=== PATIENT | female | born 1960 | race Caucasian/White ===

== ENCOUNTER 2021-06-07 21:21 | Inpatient (IN) | payer OTHER, SELFPAY ==
[2021-06-07 21:21] VITALS: BP 140/78; PULSE 117; RESP 28; TEMP 36.6; O2SAT 78; BMI 26.3
--- NOTE | 2021-06-07 21:53 | CT_ITS ---
STUDY: CTA CHEST REASON FOR EXAM: Female, 60 years old. Hypoxia. Shortness of breath. COVID positive for 6 days. Nausea, vomiting and diarrhea. RADIATION DOSAGE (If Supplied By Facility): CTDIvol = ( 11.70 ) mGy, DLP = ( 441.01 ) mGycm TECHNIQUE: The examination was performed with the intravenous administration of IV 100mL Isovue-370. Post-processing of the angiographic images was performed, with multiplanar reformation and 3D reconstruction. Individualized dose optimization techniques were used for this CT. COMPARISON: None. FINDINGS: Normal enhancement of the main pulmonary artery and right and left pulmonary arteries. Normal enhancement of the bilateral peripheral pulmonary arteries. There is no demonstrated pulmonary embolism. Normal thoracic aorta and visualized great vessels. There is no demonstrated aortic dissection. Normal heart and pericardium. Minimal coronary artery calcifications. Normal mediastinum. Normal hilar regions. Normal visualized trachea and bronchi. The lungs are well expanded. Patchy peripheral groundglass infiltrates throughout both lungs consistent with COVID pneumonia. Normal pleura. Normal chest wall structures. There are degenerative changes of thoracic spine. Borderline splenomegaly. Upper abdomen is otherwise grossly normal CT/CTA Chest W/WO Contrast IMPRESSION: 1. No evidence of pulmonary embolus. 2. No aortic dissection or aneurysm. 3. Pulmonary findings consistent with COVID pneumonia. Electronically Signed: Titus Granados DO at 23:28 EST Tel [phone], Service support ,
--- NOTE | 2021-06-07 21:53 | EKG12_ITS ---
Test Reason : DYSRHYTHMIA Blood Pressure : / mmHG Vent. Rate : 099 BPM Atrial Rate : 099 BPM P-R Int : 174 ms QRS Dur : 086 ms QT Int : 358 ms P-R-T Axes : 041 019 -14 degrees QTc Int : 459 ms Normal sinus rhythm Nonspecific ST and T wave abnormality Abnormal ECG Confirmed by KEVIN CLIFTON, ANNA ([id number]), editor & co founder VINAY KINSEY ([id number]) on 06/08/2021 11:48:47 AM Referred By: BELLE Confirmed By:ANNA BROWN MD
--- NOTE | 2021-06-07 21:57 | ED.RN ---
NO OLD EKGS ON FILE
[2021-06-07 22:03] LABS: Absolute Neutrophil Count 3.2 X10^3/uL (2.0-7.7); Basophil# 0.01 X10^3/uL; Basophil% 0.2 % (0-1); Eosinophil# 0.04 X10^3/uL; Eosinophils% 0.9 % (0-5); Hematocrit 38.9 % (37-47); Hemoglobin 12.8 g/dL (12.0-15.0); Lymphocyte % 16.4 % (19-41); Mean Corp Hgb Conc 32.9 g/dL (32-36); Mean Corpuscular Hgb 26.6 pg (27.0-32.0); Mean Corpuscular Volume 80.7 fL (81-99); Mean Platelet Vol. 8.3 fl (6.2-12.0); Monocyte# 0.22 X10^3/uL; Monocyte% 5.2 % (0-10); NRBC Flagged by Analyzer 0 % (0-5); Neutrophil # 3.22 X10^3/uL (2.7-7.7); Neutrophil % 75.7 % (47-70); Platelet Count 279 K/mm3 (150-450); RBC Distribution Width CV 13.2 % (11.6-14.6); RBC Distribution Width SD 38.5 fl (35.1-43.9); Red Blood Count 4.82 M/mm3 (4.2-5.4); White Blood Count 4.3 K/mm3 (4.4-11.0)
[2021-06-07 22:06] VITALS: O2SAT 96
[2021-06-07 22:08] LABS: International Normalized Ratio 1.1; Prothrombin Time (Protime)PT. 13.4 SECONDS (11.7-14.9)
[2021-06-07 22:09] LABS: Partial Thromboplast Time 33.1 Seconds (24.1-36.2)
[2021-06-07 22:10] VITALS: PULSE 97; RESP 18; O2SAT 96
[2021-06-07] MEDS: 0.9% Normal Saline 1,000 ML 999 ML IV (22:15)
[2021-06-07] MEDS: dexAMETHasone 10 MG/ML Vial IV (22:15)
[2021-06-07 22:19] LABS: Anion Gap 8 (5-15); BUN 11 mg/dL (7-18); BUN/Creat Ratio 13.9 RATIO (10-20); Chloride 105 mmol/L (98-107); Creatinine, Serum 0.79 mg/dL (0.55-1.02); EST Glomerular Filtration Rate 78 mL/min (>60); Est Glom Filt Rate - Afr Amer 94 mL/min (>60); Glucose 117 mg/dL (74-106); Potassium 3.2 mmol/L (3.5-5.1); Sodium Level 139 mmol/L (136-145); Troponin-I HS 8 pg/mL (3.0-54.0)
--- NOTE | 2021-06-07 22:24 | EX.ED.DYSGE1 ---
HPI History of Present Illness Chief Complaint: Shortness of Breath Narrative Narrative: Patient is a 60-year-old female who states that she began feeling sick approximately 8 days ago. She states she went to her family doctor on Friday and was diagnosed with Covid. She states that as time is past she has been feeling more more short of breath. She states it is now to the point where she is short of breath just at rest. She denies any history of smoking or lung disorder or need for supplemental oxygen. However with her worsening symptoms as well as recent Covid diagnosis she was concerned and presents to the hospital for evaluation [facility] Medical History Mitral valve prolapse Allergy/AdvReac Type Severity Reaction Status Date / Time No Known Allergies Allergy Verified 06/07/21 22:22 Social History Smoking Status: Never smoker ROS ROS ED Constitutional Constitutional ED: Denies chills or fever(s) ENT ENT ED: Reports rhinorrhea and sore throat Cardiovascular Cardiovascular: Denies chest pain Respiratory/Chest Respiratory/Chest: Reports cough, dyspnea and sputum Gastrointestinal Gastrointestinal: Denies abdominal pain, diarrhea, nausea or vomiting Genitourinary Genitourinary ED: Denies dysuria Musculoskeletal Musculoskeletal: Reports myalgias Integumentary Denies rash Neurologic Neurologic: Denies headache(s) Hematologic/Lymphatic Hematologic/Lymphatic: Denies easy bleeding or easy bruising EXAM Physical Exam Const Vital Signs: 06/07/21 21:21 06/07/21 22:06 06/07/21 22:10 Temperature 97.8 F Temperature Source Temporal Pulse Rate 117 H 97 Respiratory Rate 28 H 18 Respiratory Effort Short of Breath Respiratory Pattern Tachypnea Blood Pressure 140/78 H Blood Pressure Mean 98 Pulse Ox 78 96 Oxygen Delivery Method Room Air Nasal Cannula Nasal Cannula Oxygen Flow Rate (L/min) 6 6 Positive well nourished and well developed General Appearance ED: well developed HEENT Reports moist mucous membranes HEENT Narrative: Cobblestoning the posterior pharynx consistent with sinus drainage but no airway edema or compromise Eyes PERRL and EOMs intact bilaterally Neck supple and no JVD Neck Narrative: Positive anterior cervical lymphadenopathy Resp Resp Narrative: Patient is in respiratory distress with tachypnea and accessory muscle use. Breath sounds are diminished throughout with faint expiratory wheezes as well as rhonchi in bilateral bases. Cardio regular rhythm Rate: tachycardic and other Other Details: Tachycardic rate with regular rhythm. Radial pulses are +2-4 bilaterally are equal and symmetric GI normal to inspection, nondistended, normoactive bowel sounds, non-tender, non-distended and no masses GI Narrative: No voluntary guarding or rigidity no pulsatile mass Auscultation: normoactive bowel sounds Palpation: soft Extremity normal to inspection Extremity Narrative: No asymmetric edema no pitting edema negative Homans' sign bilaterally Neuro oriented x3 and CN's II-XII intact bilaterally Sensorium / Orientation: alert Motor Exam: strength 5/5 throughout Psych mental status grossly normal Skin no rashes or lesions noted MDM MDM MDM Narrative Medical decision making narrative: Patient into the ER and respiratory distress with tachypnea tachycardia and hypoxia with room air pulse ox at 78%. She reported a recent Covid diagnosis roughly 7 to 8 days ago. Secondary to this she was given Decadron and breathing treatments and sent for CTA with concern for possible PE. CTA revealed no PE but does show diffuse groundglass opacities consistent with Covid pneumonitis. At this time I have concerned that she is going to have worsening inflammation over the next few days and therefore will get admitted to the hospital at this time for continued oxygen therapy and possibly remdesivir treatment. Lab Data Attestation: I reviewed the patient's lab results. Labs: Laboratory Results - last 24 hr 06/07/21 06/07/21 06/07/21 21:49 21:49 21:49 WBC 4.3 L RBC 4.82 Hgb 12.8 Hct 38.9 MCV 80.7 L MCH 26.6 L MCHC 32.9 RDW Std Deviation 38.5 RDW Coeff of Xochitl 13.2 Plt Count 279 MPV 8.3 Immature Gran % (Auto) 1.600 H Neut % (Auto) 75.7 H Lymph % (Auto) 16.4 L [place] % (Auto) 5.2 Eos % (Auto) 0.9 Baso % (Auto) 0.2 Absolute Neuts (auto) 3.2 Absolute Lymphs (auto) 0.70 L Nucleated RBC % 0 PT 13.4 INR 1.1 APTT 33.1 Sodium 139 Potassium 3.2 L Chloride 105 Carbon Dioxide 26.0 Anion Gap 8 BUN 11 Creatinine 0.79 Estim Creat Clear Calc 71.80 Est GFR (MDRD) Af Amer 94 Est GFR (MDRD) Non-Af 78 BUN/Creatinine Ratio 13.9 Glucose 117 H Calcium 9.0 Magnesium 2.0 Troponin I High Sens 8 Discharge Plan Triage Chief Complaint: Shortness of Breath ED Provider: Felix Quinn Dx/Rx/DC Orders Clinical Impression: Acute respiratory failure with hypoxia, COVID-19 Primary Care Provider: Oscar Ayala Referrals: Oscar Ayala MD [Primary Care Provider] - Disposition Disposition: Acute Care Hospital [facility]
--- NOTE | 2021-06-07 23:03 | HP.PCM.HOS_ITS ---
HPI - General General Date of Admission: 06/07/21 Date of Service: 06/07/21 Chief Complaint: Covid-like symptoms HPI Narrative SOUTH [place], is a 60 F with a significant history of congenital solitary kidney; and mitral valve prolapse who presents to the emergency department with Covid-like symptoms that started 8 days before presentation. She describes a Covid-like symptoms as difficulty breathing; anorexia; dysgeusia; anosmia; diar farhan; fatigue; headaches; arthralgia; and muscle aches. She report that her muscle ache has actually improved. She reports dry cough. She called her Nurse Practitioner and she will instructed to have a Covid test. She had the Covid test sick before presentation at an urgent care. The next day she was notified of the Covid test was positive. Her nurse petitioner started her on prednisone taper. Her symptoms progressively got worse so she came to the emergency department . On initial presentation at the emergency department her oxygen saturation was 78% on room air. Also she reported that at the urgent care she was started on eardrops and was given antibiotics for ear infection. She has completed a course of the antibiotics. [facility] Medical History Mitral valve prolapse Home Medications ergocalciferol (vitamin D2) 1,250 mcg PO QWEEK 06/08/21 [History Last Taken 06/05/21] sertraline 100 mg PO QHS 06/08/21 [History Last Taken 06/06/21] trazodone 50 mg PO QHS 06/08/21 [History Last Taken 06/06/21] Allergy/AdvReac Type Severity Reaction Status Date / Time No Known Allergies Allergy Verified 06/08/21 00:24 Family History Other Diabetes Heart disease Multiple sclerosis Surgical History no surgical history no surgical history Social History Smoking Status: Never smoker ROS ROS Narrative Constitutional: Denies fever. Reports chills, fatigue, anorexia . Eyes: Denies blurry vision, change in eye color, change in vision, discharge from eye(s), double vision, erythema, eye pain, loss of vision or other HEENT: Reports headache. Denies abnormal hearing, dysphagia, ear pain, epistaxis, hearing loss, nasal congestion, nasal discharge, post nasal drip, sinus pressure, sore throat or other Cardiovascular: Denies chest pain or palpitations. Respiratory/Chest: Reports cough. Denies phlegm production. Gastrointestinal: Denies nausea vomiting and diarrhea. Genitourinary: Denies burning urination, difficulty urinating, dysuria, hematuria, nocturia, urinary frequency, urinary hesitancy, urinary incontinence, urinary urgency or other Musculoskeletal: Reports arthralgia and myalgia. Neurologic: Denies abnormal gait, abnormal speech, confusion, disequilibrium, dizziness, focal weakness, numbness, paresthesias, seizure-like activity, seizures, syncope, tingling, tremor(s) or other Psychiatric: Denies anxiety, depression, homicidal ideation, suicidal ideation or other Endocrinology: Denies change in body appearance, cold intolerance, excessive sweating, heat intolerance, polydipsia, polyuria or other Hematologic/Lymphatic: Denies anemia, easy bleeding, easy bruising, lymphadenopathy or other Integumentary: Denies rashes Allergic/Immunologic: Denies rhinitis, hives, eczema, asthma or other Vital Signs Vital Signs Vital Signs: 06/07/21 21:21 06/07/21 22:06 06/07/21 22:10 Temperature 97.8 F Temperature Source Temporal Pulse Rate 117 H 97 Respiratory Rate 28 H 18 Respiratory Effort Short of Breath Respiratory Pattern Tachypnea Blood Pressure 140/78 H Blood Pressure Mean 98 Pulse Ox 78 96 Oxygen Delivery Method Room Air Nasal Cannula Nasal Cannula Oxygen Flow Rate (L/min) 6 6 Weight Weight: 76.204 kg Body Mass Index (BMI) 26.3 Physical Exam Narrative Physical exam: General: Well-nourished, well-developed. Head: Normocephalic, atraumatic, no tenderness Eyes: PERRLA, EOMI ENT, no trauma, moist mucous membranes, no rhinorrhea Neck: Nontender, full range of motion, no spinal tenderness, deformities, step- off CVS: Regular rate and rhythm. S1-S2 present. No murmur, gallop or rub. Respiratory : Tachypnea; use of accessory muscles of respiration; Rales. Abdomen: Soft, nontender, nondistended, normal bowel sounds, no masses : Deferred Back: Nontender, no CVA tenderness, no midline spinal tenderness, deformities, step-offs Extremities: Nontender full range of motion, no trauma Skin: Normal color, no trauma, abrasions Neuro: Alert, oriented, cranial nerves II through XII grossly intact. Psychiatry: Normal mood. Normal affect. Not depressed. Not anxious. Results Lab / Micro Data Result Diagrams: 06/07/21 21:49 06/07/21 21:49 Labs: Laboratory Results - last 24 hr 06/07/21 21:49: WBC 4.3 L, RBC 4.82, Hgb 12.8, Hct 38.9, MCV 80.7 L, MCH 26.6 L, MCHC 32.9, RDW Std Deviation 38.5, RDW Coeff of Xochitl 13.2, Plt Count 279, MPV 8.3, Immature Gran % (Auto) 1.600 H, Neut % (Auto) 75.7 H, Lymph % (Auto) 16.4 L , [place] % (Auto) 5.2, Eos % (Auto) 0.9, Baso % (Auto) 0.2, Absolute Neuts (auto) 3.2, Absolute Lymphs (auto) 0.70 L, Nucleated RBC % 0 06/07/21 21:49: PT 13.4, INR 1.1, APTT 33.1 06/07/21 21:49: Sodium 139, Potassium 3.2 L, Chloride 105, Carbon Dioxide 26.0, Anion Gap 8, BUN 11, Creatinine 0.79, Estim Creat Clear Calc 71.80, Est GFR (MDRD) Af Amer 94, Est GFR (MDRD) Non-Af 78, BUN/Creatinine Ratio 13.9, Glucose 117 H, Calcium 9.0, Magnesium 2.0, Troponin I High Sens 8 Micro: Microbiology 06/07/21 22:14 Nasal Secretion SARS-CoV-2 Antigen (Rapid) - Final SARS-CoV-2 (COVID 19) Assessment & Plan Assessment/Plan (1) Acute respiratory failure with hypoxia: (2) Pneumonia due to COVID-19 virus: PLAN: Acute hypoxemic respiratory failure secondary to SARS- COV 2 Oxygen saturation of 78% on presentation; with tachypnea and use of accessory muscles of respiration. Placed a nasal cannula oxygen at emergency department and continued. Chest CTA was independently reviewed and agree with radiologist impression of multifocal pneumonia. Covid test outpatient and at the emergency department was positive. Given Decadron at the emergency department. Decadron continued. Creatinine clearance is more than 30. Liver biochemistry is normal. Will start patient on remdesivir. Tylenol for fever Mucinex ordered Incentive spirometer and to physiotherapy ordered. Hypokalemia Potassium of 3.2 at the emergent department. Replaced at the emergency department. Trend BMP. DVT prophylaxis: Subcutaneous Lovenox ordered. Charges/Coding Visit Charges Inpatient E&M: 17290 Init Hosp L3
[2021-06-07 23:12] LABS: AST(SGOT) 48 U/L (15-37); Alanine Aminotransfer ALT/SGPT 36 U/L (13-56); Albumin, Serum 2.8 g/dL (3.2-5.0); Alkaline Phosphatase 82 U/L (45-117); Bilirubin, Direct 0.16 mg/dL (0.00-0.30); Globulin 4.4 g/dL (2.2-4.2); Lipase 111 U/L (73-393); Protein, Total 7.2 g/dL (6.4-8.2)
[2021-06-07 23:28] VITALS: BP 137/85; PULSE 97; RESP 19; TEMP 37.3; O2SAT 95
[2021-06-07] MEDS: Potassium Chloride Oral Tablet 20 MEQ 40 MEQ PO (23:30)
[2021-06-08] VITALS (14 sets, daily range): BP systolic 117–138; BP diastolic 64–89; PULSE 63–96; RESP 15–20; TEMP 36–37.8; O2SAT 80–99; BMI 26.6
--- NOTE | 2021-06-08 00:24 | PCS.PANDOC ---
PANDEMIC DOCUMENTATION INITIATED: Date: 02/26/2021 Time: 190
[2021-06-08] MEDS: guaiFENesin 1,200 MG Tablet 1200 MG PO ×3 (00:41→20:23)
[2021-06-08] MEDS: 0.9% Saline Lock 10 ML Syringe IV ×3 (00:41→20:23)
[2021-06-08] MEDS: Acetaminophen 325 MG Tablet 650 MG PO ×3 (01:19→20:29)
[2021-06-08] MEDS: traZODone 50 MG Tablet PO ×2 (02:18→20:23)
[2021-06-08] MEDS: Sertraline 100 MG Tablet PO ×2 (02:18→20:23)
[2021-06-08 07:24] LABS: Absolute Lymphocyte Count 0.54 X10^3/uL (0.83-4.51); Absolute Neutrophil Count 2.2 X10^3/uL (2.0-7.7); Hematocrit 39.4 % (37-47); Lymphocyte # 0.54 X10^3/ul (0.83-4.51); Mean Corpuscular Hgb 26.7 pg (27.0-32.0); Mean Corpuscular Volume 81.1 fL (81-99); Mean Platelet Vol. 8.4 fl (6.2-12.0); Monocyte# 0.09 X10^3/uL; Monocyte% 3.2 % (0-10); NRBC Flagged by Analyzer 0 % (0-5); Neutrophil # 2.15 X10^3/uL (2.7-7.7); Neutrophil % 75.7 % (47-70); POSITIVE DIFFERENTIAL YES; Platelet Count 315 K/mm3 (150-450); RBC Distribution Width CV 13.2 % (11.6-14.6); RBC Distribution Width SD 39.1 fl (35.1-43.9); Red Blood Count 4.86 M/mm3 (4.2-5.4); White Blood Count 2.8 K/mm3 (4.4-11.0)
[2021-06-08 07:27] LABS: Differential Indicated SCAN CRITERIA MET
[2021-06-08 07:43] LABS: ALB/GLOB Ratio 0.6 RATIO (0.9-2.4); AST(SGOT) 42 U/L (15-37); Alanine Aminotransfer ALT/SGPT 33 U/L (13-56); Albumin, Serum 2.9 g/dL (3.2-5.0); Alkaline Phosphatase 79 U/L (45-117); Anion Gap 9 (5-15); BUN 9 mg/dL (7-18); BUN/Creat Ratio 10.4 RATIO (10-20); Chloride 108 mmol/L (98-107); Creatinine, Serum 0.86 mg/dL (0.55-1.02); EST Glomerular Filtration Rate 71 mL/min (>60); Est Glom Filt Rate - Afr Amer 85 mL/min (>60); Estimated Creatinine Clearance 65.96 ml/min; Globulin 4.8 g/dL (2.2-4.2); Glucose 143 mg/dL (74-106); Potassium 4.1 mmol/L (3.5-5.1); Protein, Total 7.7 g/dL (6.4-8.2); Sodium Level 141 mmol/L (136-145)
[2021-06-08] MEDS: dexAMETHasone 2 MG TABLET 6 MG PO (09:25)
[2021-06-08] MEDS: Enoxaparin 30 MG/0.3 ML Syringe SC ×2 (09:26→20:22)
--- NOTE | 2021-06-08 10:52 | PCM.PN.HOSP ---
Subjective Subjective Feels slightly improved from admission, oxygen requirements are around 4 L nasal cannula Objective Data Objective Data Vital Signs: Vital Signs Temp Pulse Resp BP Pulse Ox 96.8 F L 84 15 127/64 H 80 06/08/21 09:23 06/08/21 09:23 06/08/21 09:23 06/08/21 09:23 06/08/21 09:42 Oxygen Flow Rate (L/min) [ 4 AMBULATING with Oxygen #1] Oxygen Flow Rate (L/min) 4 Oxygen Delivery Method Nasal Cannula Weight: 169 lb 15.622 oz Body Mass Index (BMI) 26.6 Intake & Output: Intake and Output for Last 24 Hours 06/07/21 06/08/21 06/09/21 03:59 03:59 03:59 Intake Total 1250 / 1250 Balance 1250 / 1250 Lab / Micro Data Result Diagrams: 06/08/21 06:55 06/08/21 06:55 Labs: Laboratory Results - last 24 hr 06/07/21 21:49: WBC 4.3 L, RBC 4.82, Hgb 12.8, Hct 38.9, MCV 80.7 L, MCH 26.6 L, MCHC 32.9, RDW Std Deviation 38.5, RDW Coeff of Xochitl 13.2, Plt Count 279, MPV 8.3, Immature Gran % (Auto) 1.600 H, Neut % (Auto) 75.7 H, Lymph % (Auto) 16.4 L, [place] % (Auto) 5.2, Eos % (Auto) 0.9, Baso % (Auto) 0.2, Absolute Neuts (auto) 3.2, Absolute Lymphs (auto) 0.70 L, Nucleated RBC % 0 06/07/21 21:49: PT 13.4, INR 1.1, APTT 33.1 06/07/21 21:49: Sodium 139, Potassium 3.2 L, Chloride 105, Carbon Dioxide 26.0, Anion Gap 8, BUN 11, Creatinine 0.79, Estim Creat Clear Calc 71.80, Est GFR (MDRD) Af Amer 94, Est GFR (MDRD) Non-Af 78, BUN/Creatinine Ratio 13.9, Glucose 117 H, Calcium 9.0, Magnesium 2.0, Troponin I High Sens 8 06/07/21 21:49: Total Bilirubin 0.40, Direct Bilirubin 0.16, AST 48 H, ALT 36, Alkaline Phosphatase 82, Total Protein 7.2, Albumin 2.8 L, Globulin 4.4 H, Lipase 111 06/08/21 06:55: WBC 2.8 L, RBC 4.86, Hgb 13.0, Hct 39.4, MCV 81.1, MCH 26.7 L, MCHC 33.0, RDW Std Deviation 39.1, RDW Coeff of Xochitl 13.2, Plt Count 315, MPV 8.4, Immature Gran % (Auto) 2.100 H, Neut % (Auto) 75.7 H, Lymph % (Auto) 19.0, [place] % (Auto) 3.2, Eos % (Auto) 0.0, Baso % (Auto) 0.0, Absolute Neuts (auto) 2.2, Absolute Lymphs (auto) 0.54 L, Nucleated RBC % 0, Differential Comment COMMENT, Diff Path Review November06/08/21 06:55: Sodium 141, Potassium 4.1, Chloride 108 H, Carbon Dioxide 24.0, Anion Gap 9, BUN 9, Creatinine 0.86, Estim Creat Clear Calc 65.96, Est GFR (MDRD) Af Amer 85, Est GFR (MDRD) Non-Af 71, BUN/Creatinine Ratio 10.4, Glucose 143 H, Calcium 9.0, Total Bilirubin 0.30, AST 42 H, ALT 33, Alkaline Phosphatase 79, Total Protein 7.7, Albumin 2.9 L, Globulin 4.8 H, Albumin/Globulin Ratio 0.6 L Micro: Microbiology 06/07/21 22:14 Nasal Secretion SARS-CoV-2 Antigen (Rapid) - Final SARS-CoV-2 (COVID 19) Radiography Diagnostic Testing: Radiology Impression Chest CTA 06/07/21 21:53 IMPRESSION: 1. No evidence of pulmonary embolus. 2. No aortic dissection or aneurysm. 3. Pulmonary findings consistent with COVID pneumonia. Electronically Signed: Titus Granados DO at 23:28 EST Tel [phone], Service support , Physical Exam Const alert, oriented x3 and no apparent distress General Appearance: cooperative HEENT normocephalic and moist oral mucous membranes Eyes PERRL, EOMs intact bilaterally and conjunctivae normal Neck supple and no JVD Resp normal respiratory effort, no retractions and no use of accessory muscles Auscultation: crackles; Negative for rales, rhonchi or wheezes Cardio regular rate, regular rhythm, S1 normal heart sound, S2 normal heart sound and no murmurs GI soft to palpation, non-tender and non-distended; Negative for hepatosplenomegaly Extremity no clubbing, cyanosis or edema Skin no rashes or lesions noted Neuro no focal motor deficits and no sensory deficits noted Psych affect normal Appearance: appropriate Assessment & Plan Assessment/Plan (1) Acute respiratory failure with hypoxia: (2) Pneumonia due to COVID-19 virus: PLAN: 1. Acute hypoxic respiratory failure secondary to COVID-19 pneumonia ?Continue with Decadron and remdesivir ?Maintaining oxygen saturations on 4 L nasal cannula currently if this increases to the point where she needs air Vo or BiPAP will consult ID for baricitinib ?She is unvaccinated ?She does have crackles on exam today though he will provide her with Lasix as needed ?Continue with incentive spirometry and Pep therapy, will encourage ambulation and proning 2. Anxiety/depression ?Stable ?Continue with Zoloft and trazodone DVT: Lovenox Charges/Coding Visit Charges Inpatient E&M: 91735 Subs Hosp L2
--- NOTE | 2021-06-08 12:20 | CASEMGMT ---
RN CM CO[employer]UME [employer] MANAGER CM to room to meet with patient for initial transition planning/care coordination assessment. RN CHAYA introduced self and role at [facility]. Pt voices understanding and consents to assessment at this time. Pt sitting up in chair in room in no distress at this time. Pt is A/O at this time and answers all questions appropriately. Care providers, pharmacy, and demographics verified/updated at this time. COVID testing done @ Urgent Care in [place] PCP: Dr Ayala. Pt wishes to switch to different PCP in [place]. Provided w/local list of PCP's. Specialists: None Preferred Pharmacy: [facility] Retail Insurance: [employer] Prescription Benefit: Yes Living Will/HPOA: Had these completed years ago while in the service, but does not currently have active AD in [place]. Is not interested in further information at this time. LNOK: , [place] Living Arrangements: Lives in home w/, dtr and son-in-law, 2 granddaughters, and pt's sister. All have COVID except for pt' sister and pt thinks sister may have had it first, as she was ill for a couple of weeks prior to the rest of the family becoming ill. States has someone that can get them groceries and supplies if needed. Transportation: Pt states drives self and states no transportation concerns at this time. DME: Denies using any DME. Recommended to get a pulse ox. Does not have home O2. Provided w/list of local DME companies. Denies preference and is agreeable to [employer] HHC/SNF: No hx of either. Denies need for HHC. Pt wishes to return home and states has no concerns with going home at time of discharge. CM to follow for home oxygen needs and any further discharge planning/needs. Pt voices no further concerns/needs at this time. Advised pt to ask for CM if any further questions/concerns/needs arise. Voices understanding. PLAN: Home w/discharge plans in place. Follow for any Home O2 needs @ discharge. Andrey VAN RN, CM
[2021-06-08] MEDS: Furosemide 20 MG/2 ML VIAL IV (13:24)
[2021-06-08 15:38] LABS: Pathologist Review Reviewed
--- NOTE | 2021-06-08 15:44 | CASEMGMT ---
Green sheet left on chart for home oxygen, if pt qualifies. SStjamie RN CM
[2021-06-09] VITALS (12 sets, daily range): BP systolic 126–139; BP diastolic 65–85; PULSE 81–117; RESP 15–18; TEMP 37–38.1; O2SAT 84–99
[2021-06-09 07:22] LABS: Absolute Lymphocyte Count 0.97 X10^3/uL (0.83-4.51); Absolute Neutrophil Count 5.6 X10^3/uL (2.0-7.7); Basophil# 0.01 X10^3/uL; Basophil% 0.1 % (0-1); Eosinophil# 0.01 X10^3/uL; Eosinophils% 0.1 % (0-5); Hematocrit 35.6 % (37-47); Hemoglobin 11.7 g/dL (12.0-15.0); Lymphocyte # 0.97 X10^3/ul (0.83-4.51); Lymphocyte % 13.9 % (19-41); Mean Corp Hgb Conc 32.9 g/dL (32-36); Mean Corpuscular Hgb 26.3 pg (27.0-32.0); Mean Platelet Vol. 8.6 fl (6.2-12.0); Monocyte# 0.32 X10^3/uL; Monocyte% 4.6 % (0-10); NRBC Flagged by Analyzer 0 % (0-5); Neutrophil # 5.63 X10^3/uL (2.7-7.7); Neutrophil % 80.4 % (47-70); Platelet Count 361 K/mm3 (150-450); RBC Distribution Width CV 13.1 % (11.6-14.6); RBC Distribution Width SD 37.4 fl (35.1-43.9); Red Blood Count 4.45 M/mm3 (4.2-5.4)
[2021-06-09 07:55] LABS: ALB/GLOB Ratio 0.6 RATIO (0.9-2.4); AST(SGOT) 43 U/L (15-37); Alanine Aminotransfer ALT/SGPT 28 U/L (13-56); Albumin, Serum 2.6 g/dL (3.2-5.0); Alkaline Phosphatase 72 U/L (45-117); Anion Gap 6 (5-15); BUN 13 mg/dL (7-18); BUN/Creat Ratio 21.4 RATIO (10-20); Calcium,Total 9.1 mg/dL (8.5-10.1); Chloride 110 mmol/L (98-107); Creatinine, Serum 0.61 mg/dL (0.55-1.02); EST Glomerular Filtration Rate 106 mL/min (>60); Est Glom Filt Rate - Afr Amer 128 mL/min (>60); Estimated Creatinine Clearance 92.99 ml/min; Globulin 4.3 g/dL (2.2-4.2); Glucose 104 mg/dL (74-106); Potassium 3.1 mmol/L (3.5-5.1); Protein, Total 6.9 g/dL (6.4-8.2); Sodium Level 139 mmol/L (136-145)
[2021-06-09] MEDS: Acetaminophen 325 MG Tablet 650 MG PO ×2 (08:10→20:53)
[2021-06-09] MEDS: dexAMETHasone 2 MG TABLET 6 MG PO (08:52)
[2021-06-09] MEDS: Enoxaparin 30 MG/0.3 ML Syringe SC ×2 (08:52→20:54)
[2021-06-09] MEDS: guaiFENesin 1,200 MG Tablet 1200 MG PO ×2 (08:53→20:54)
--- NOTE | 2021-06-09 11:51 | PCM.PN.HOSP ---
Subjective Subjective Doing well, no issues overnight. She is maintaining her oxygen sats on 4 L nasal cannula. We will do an ambulatory pulse ox just to see where were at Objective Data Objective Data Vital Signs: Vital Signs Temp Pulse Resp BP Pulse Ox 99 F 84 18 139/65 H 99 06/09/21 11:00 06/09/21 11:00 06/09/21 11:00 06/09/21 11:00 06/09/21 11:00 Oxygen Flow Rate (L/min) [At 4 REST with Oxygen] Oxygen Flow Rate (L/min) [ 5 AMBULATING with Oxygen #2] Oxygen Flow Rate (L/min) [ 0 AMBULATING on Room Air] Oxygen Flow Rate (L/min) [At 0 REST on Room Air] Oxygen Flow Rate (L/min) [ 4 AMBULATING with Oxygen #1] Oxygen Flow Rate (L/min) 4 Oxygen Delivery Method Nasal Cannula Weight: 169 lb 15.622 oz Body Mass Index (BMI) 26.6 Intake & Output: Intake and Output for Last 24 Hours 06/08/21 06/09/21 06/10/21 03:59 03:59 03:59 Intake Total 1250 / 1250 1690 / 1690 100 / 100 Balance 1250 / 1250 1690 / 1690 100 / 100 Lab / Micro Data Result Diagrams: 06/09/21 06:33 06/09/21 06:33 Labs: Laboratory Results - last 24 hr 06/08/21 06:55: Diff Path Review Reviewed 06/09/21 06:33: WBC 7.0, RBC 4.45, Hgb 11.7 L, Hct 35.6 L, MCV 80.0 L, MCH 26.3 L, MCHC 32.9, RDW Std Deviation 37.4, RDW Coeff of Xochitl 13.1, Plt Count 361, MPV 8.6, Immature Gran % (Auto) 0.900, Neut % (Auto) 80.4 H, Lymph % (Auto) 13.9 L, [place] % (Auto) 4.6, Eos % (Auto) 0.1, Baso % (Auto) 0.1, Absolute Neuts (auto) 5.6, Absolute Lymphs (auto) 0.97, Nucleated RBC % 0 06/09/21 06:33: Sodium 139, Potassium 3.1 L, Chloride 110 H, Carbon Dioxide 23.0, Anion Gap 6, BUN 13, Creatinine 0.61, Estim Creat Clear Calc 92.99, Est GFR (MDRD) Af Amer 128, Est GFR (MDRD) Non-Af 106, BUN/Creatinine Ratio 21.4 H, Glucose 104, Calcium 9.1, Total Bilirubin 0.40, AST 43 H, ALT 28, Alkaline Phosphatase 72, Total Protein 6.9, Albumin 2.6 L, Globulin 4.3 H, Albumin/Globulin Ratio 0.6 L Micro: Microbiology 06/07/21 22:14 Nasal Secretion SARS-CoV-2 Antigen (Rapid) - Final SARS-CoV-2 (COVID 19) Physical Exam Narrative Const alert, oriented x3 and no apparent distress General Appearance: cooperative HEENT normocephalic and moist oral mucous membranes Eyes PERRL, EOMs intact bilaterally and conjunctivae normal Neck supple and no JVD Resp normal respiratory effort, no retractions and no use of accessory muscles Auscultation: crackles; Negative for rales, rhonchi or wheezes Cardio regular rate, regular rhythm, S1 normal heart sound, S2 normal heart sound and no murmurs GI soft to palpation, non-tender and non-distended; Negative for hepatosplenomegaly Extremity no clubbing, cyanosis or edema Skin no rashes or lesions noted Neuro no focal motor deficits and no sensory deficits noted Psych affect normal Appearance: appropriate Assessment & Plan Assessment/Plan (1) Acute respiratory failure with hypoxia: (2) Pneumonia due to COVID-19 virus: PLAN: 1. Acute hypoxic respiratory failure secondary to COVID-19 pneumonia ?Continue with Decadron and remdesivir ?Maintaining oxygen saturations on 4 L nasal cannula currently if this increases to the point where she needs air Vo or BiPAP will consult ID for baricitinib ?She does have crackles on exam today though, will provide her with Lasix as needed ?Continue with incentive spirometry and Pep therapy, will encourage ambulation and proning ?Obtain ambulatory pulse ox today 2. Anxiety/depression ?Stable ?Continue with Zoloft and trazodone DVT: Lovenox Charges/Coding Visit Charges Inpatient E&M: 55361 Subs Hosp L2
[2021-06-09] MEDS: Potassium Chloride Oral Tablet 20 MEQ 60 MEQ PO (12:55)
[2021-06-09] MEDS: Furosemide 40 MG/4 ML Vial IV (12:56)
[2021-06-09] MEDS: Sertraline 100 MG Tablet PO (20:54)
[2021-06-09] MEDS: traZODone 50 MG Tablet PO (20:54)
[2021-06-09] MEDS: MELATONIN 10 MG TABLET PO (20:55)
[2021-06-09] MEDS: 0.9% Saline Lock 10 ML Syringe IV (20:55)
[2021-06-10] VITALS (11 sets, daily range): BP systolic 103–115; BP diastolic 60–82; PULSE 88–109; RESP 18–20; TEMP 37.2–38.7; O2SAT 82–97
[2021-06-10] MEDS: Acetaminophen 325 MG Tablet 650 MG PO ×2 (04:48→11:18)
[2021-06-10 07:50] LABS: Absolute Neutrophil Count 6.9 X10^3/uL (2.0-7.7); Basophil# 0.01 X10^3/uL; Basophil% 0.1 % (0-1); Eosinophil# 0.04 X10^3/uL; Eosinophils% 0.5 % (0-5); Hematocrit 36.4 % (37-47); Hemoglobin 12.2 g/dL (12.0-15.0); Mean Corp Hgb Conc 33.5 g/dL (32-36); Mean Corpuscular Volume 80.5 fL (81-99); Mean Platelet Vol. 8.6 fl (6.2-12.0); Monocyte# 0.26 X10^3/uL; Monocyte% 3.2 % (0-10); NRBC Flagged by Analyzer 0 % (0-5); Neutrophil # 6.88 X10^3/uL (2.7-7.7); Neutrophil % 84.3 % (47-70); Platelet Count 406 K/mm3 (150-450); RBC Distribution Width CV 13.3 % (11.6-14.6); RBC Distribution Width SD 39.2 fl (35.1-43.9); Red Blood Count 4.52 M/mm3 (4.2-5.4); White Blood Count 8.2 K/mm3 (4.4-11.0)
[2021-06-10 08:22] LABS: ALB/GLOB Ratio 0.6 RATIO (0.9-2.4); AST(SGOT) 33 U/L (15-37); Alanine Aminotransfer ALT/SGPT 26 U/L (13-56); Albumin, Serum 2.6 g/dL (3.2-5.0); Alkaline Phosphatase 70 U/L (45-117); Anion Gap 11 (5-15); BUN 18 mg/dL (7-18); BUN/Creat Ratio 22.4 RATIO (10-20); Calcium,Total 9.1 mg/dL (8.5-10.1); Chloride 107 mmol/L (98-107); EST Glomerular Filtration Rate 77 mL/min (>60); Est Glom Filt Rate - Afr Amer 93 mL/min (>60); Globulin 4.4 g/dL (2.2-4.2); Glucose 136 mg/dL (74-106); Sodium Level 137 mmol/L (136-145)
[2021-06-10] MEDS: 0.9% Saline Lock 10 ML Syringe IV ×2 (09:53→11:24)
[2021-06-10] MEDS: Ondansetron 4 MG/2 ML Vial IV (09:53)
--- NOTE | 2021-06-10 09:54 | PCM.PN.HOSP ---
Subjective Subjective Doing well, breathing a bit better today and is down about 2-1/2 L nasal cannula however her ambulatory pulse ox demonstrated need of 5 L nasal cannula to maintain 88% so unfortunate she cannot be discharged today. Objective Data Objective Data Vital Signs: Vital Signs Temp Pulse Resp BP Pulse Ox 100.2 F H 105 H 20 H 115/66 92 06/10/21 09:30 06/10/21 09:30 06/10/21 09:30 06/10/21 09:30 06/10/21 09:50 Oxygen Flow Rate (L/min) [At 2 REST with Oxygen] Oxygen Flow Rate (L/min) [ 5 AMBULATING with Oxygen #2] Oxygen Flow Rate (L/min) [ 0 AMBULATING on Room Air] Oxygen Flow Rate (L/min) [At 0 REST on Room Air] Oxygen Flow Rate (L/min) [ 2 AMBULATING with Oxygen #1] Oxygen Flow Rate (L/min) 2 Oxygen Delivery Method Nasal Cannula Weight: 169 lb 15.622 oz Body Mass Index (BMI) 26.6 Intake & Output: Intake and Output for Last 24 Hours 06/09/21 06/10/21 06/11/21 03:59 03:59 03:59 Intake Total 1690 / 1690 5670 / 5670 Balance 1690 / 1690 5670 / 5670 Lab / Micro Data Result Diagrams: 06/10/21 07:00 06/10/21 07:00 Labs: Laboratory Results - last 24 hr 06/10/21 07:00: WBC 8.2, RBC 4.52, Hgb 12.2, Hct 36.4 L, MCV 80.5 L, MCH 27.0, MCHC 33.5, RDW Std Deviation 39.2, RDW Coeff of Xochitl 13.3, Plt Count 406, MPV 8.6, Immature Gran % (Auto) 0.900, Neut % (Auto) 84.3 H, Lymph % (Auto) 11.0 L, Churchill % (Auto) 3.2, Eos % (Auto) 0.5, Baso % (Auto) 0.1, Absolute Neuts (auto) 6.9, Absolute Lymphs (auto) 0.90, Nucleated RBC % 0 06/10/21 07:00: Sodium 137, Potassium 3.0 L, Chloride 107, Carbon Dioxide 19.0 L, Anion Gap 11, BUN 18, Creatinine 0.80, Estim Creat Clear Calc 70.90, Est GFR (MDRD) Af Amer 93, Est GFR (MDRD) Non-Af 77, BUN/Creatinine Ratio 22.4 H, Glucose 136 H, Calcium 9.1, Total Bilirubin 0.50, AST 33, ALT 26, Alkaline Phosphatase 70, Total Protein 7.0, Albumin 2.6 L, Globulin 4.4 H, Albumin/Globulin Ratio 0.6 L Micro: Microbiology 06/07/21 22:14 Nasal Secretion SARS-CoV-2 Antigen (Rapid) - Final SARS-CoV-2 (COVID 19) Physical Exam Narrative Const alert, oriented x3 and no apparent distress General Appearance: cooperative HEENT normocephalic and moist oral mucous membranes Eyes PERRL, EOMs intact bilaterally and conjunctivae normal Neck supple and no JVD Resp normal respiratory effort, no retractions and no use of accessory muscles Auscultation: crackles; Negative for rales, rhonchi or wheezes Cardio regular rate, regular rhythm, S1 normal heart sound, S2 normal heart sound and no murmurs GI soft to palpation, non-tender and non-distended; Negative for hepatosplenomegaly Extremity no clubbing, cyanosis or edema Skin no rashes or lesions noted Neuro no focal motor deficits and no sensory deficits noted Psych affect normal Appearance: appropriate Assessment & Plan Assessment/Plan (1) Acute respiratory failure with hypoxia: (2) Pneumonia due to COVID-19 virus: PLAN: 1. Acute hypoxic respiratory failure secondary to COVID-19 pneumonia ?Continue with Decadron and remdesivir ?Maintaining oxygen saturations on 2 L nasal cannula currently ?She does have crackles on exam today though, will provide her with Lasix as needed ?She is unvaccinated do recommend that she get vaccinated after she is discharged home ?Continue with incentive spirometry and Pep therapy, will encourage ambulation and proning ?Obtain ambulatory pulse ox today 2. Anxiety/depression ?Stable ?Continue with Zoloft and trazodone DVT: Lovenox Charges/Coding Visit Charges Inpatient E&M: 50764 Subs Hosp L2
[2021-06-10] MEDS: Potassium Chloride Oral Tablet 20 MEQ 60 MEQ PO (11:18)
[2021-06-10] MEDS: Enoxaparin 30 MG/0.3 ML Syringe SC (11:19)
[2021-06-10] MEDS: Furosemide 40 MG/4 ML Vial IV (11:19)
[2021-06-10] MEDS: guaiFENesin 1,200 MG Tablet 1200 MG PO (11:20)
[2021-06-10] MEDS: dexAMETHasone 2 MG TABLET 6 MG PO (11:20)
--- NOTE | 2021-06-10 13:51 | PCM.DC ---
Discharge Instructions Diet Discharge Diet: No restrictions Activity Discharge Activity: Return to Normal Activity Dressing / Incision Call your doctor if you observe: Fever of 101 or Higher, Shortness of breath, Dizziness, Fainting spells, Swelling in the ankles, Chest pain and Increased palpitations (irregular heartbeat) Follow Up Care Test Results: Test results from this visit will be discussed in further detail at your follow-up appointment, if applicable. Discharge Plan Admission Admit Date/Time: 06/07/21 22:54 Attending Provider: Moisés Pham Primary Care Provider: Oscar Ayala Instructions Additional Instructions / Restrictions: She will complete quarantine on 06/19/2021. I do recommend that in July she get vaccinated against Covid. Discharge Orders/Prescriptions Prescriptions: New dexamethasone [Decadron] 6 mg tablet 6 mg PO DAILY Qty: 7 RF: 0 Continued trazodone 50 mg tablet 50 mg PO QHS RF: 0 sertraline 100 mg tablet 100 mg PO QHS RF: 0 ergocalciferol (vitamin D2) 1,250 mcg (50,000 unit) capsule 1,250 mcg PO QWEEK RF: 0 Referrals / Follow Up: Oscar Ayala MD [Primary Care Provider] - Within 1 Week Disposition Disposition (needs filled in before D/C Order can be placed): Home, Self Care
--- NOTE | 2021-06-10 13:57 | DS.PCM_ITS ---
Providers Date of Admission: 06/07/21 Primary Care Physician: Dr. Oscar Ayala MD Reason For Visit: ACUTE HYPOXEMIC RESPIRATORY FAILURE Diagnosis Discharge Diagnosis (1) Acute respiratory failure with hypoxia: Status: Acute Code(s): J96.01 - Acute respiratory failure with hypoxia (2) Pneumonia due to COVID-19 virus: Status: Acute Code(s): U07.1 - COVID-19; J12.82 - Pneumonia due to coronavirus disease 2019 Medications at Discharge Home Medications ergocalciferol (vitamin D2) 1,250 mcg PO QWEEK 06/08/21 sertraline 100 mg PO QHS 06/08/21 trazodone 50 mg PO QHS 06/08/21 dexamethasone [Decadron] 6 mg PO DAILY #7 tab 06/10/21 Hospital Course Operations None Procedures None Summary of Care Provided Minutes Spent on Discharge: 42 Hospital Course: Per HPI: SOUTH ZAPATA, is a 60 F with a significant history of congenital solitary kidney; and mitral valve prolapse who presents to the emergency department with Covid-like symptoms that started 8 days before presentation. She describes a Covid-like symptoms as difficulty breathing; anorexia; dysgeusia; anosmia; diarrhea; fatigue; headaches; arthralgia; and muscle aches. She report that her muscle ache has actually improved. She reports dry cough. She called her Nurse Practitioner and she will instructed to have a Covid test. She had the Covid test sick before presentation at an urgent care. The next day she was notified of the Covid test was positive. Her nurse petitioner started her on prednisone taper. Her symptoms progressively got worse so she came to the emergency department . On initial presentation at the emergency department her oxygen saturation was 78% on room air. Also she reported that at the urgent care she was started on eardrops and was given antibiotics for ear infection. She has completed a course of the antibiotics. Hospital Course: 1. Acute hypoxic respiratory failure secondary to COVID-19 pneumonia ?Continue with Decadron and remdesivir ?Maintaining oxygen saturations on 2 L nasal cannula currently ?She does have crackles on exam today though, will provide her with Lasix as needed ?She is unvaccinated do recommend that she get vaccinated after she is discharged home ?Continue with incentive spirometry and Pep therapy, will encourage ambulation and proning 06/10/2021: She did have an ambulatory pulse ox earlier this morning but she had an episode of nausea and had some emesis which has resolved. She wanted to have another ambulatory pulse ox done this afternoon which demonstrated need for 4 L of oxygen with ambulation. She needs 2 L at rest. I discussed with her that she should wear 4 L of oxygen at night given that, she needs with ambulation and then resumed 2 L at rest. I discussed with her the plan today and she expressed understanding Herman is going home and would like to go home today. Also discussed that she needs to follow-up with her PCP in 3 to 5 days, her potassium on the day of discharge was 3.0 but this was replaced. 2. Anxiety/depression ?Stable ?Continue with Zoloft and trazodone Weight / BMI Weight Weight: 169 lb 15.622 oz Body Mass Index (BMI) 26.6 ABG / Lab / Microbiology Data Result Diagrams: 06/10/21 07:00 06/10/21 07:00 Laboratory: Laboratory Results - last 24 hr 06/10/21 07:00: WBC 8.2, RBC 4.52, Hgb 12.2, Hct 36.4 L, MCV 80.5 L, MCH 27.0, MCHC 33.5, RDW Std Deviation 39.2, RDW Coeff of Xochitl 13.3, Plt Count 406, MPV 8.6, Immature Gran % (Auto) 0.900, Neut % (Auto) 84.3 H, Lymph % (Auto) 11.0 L, Bradley % (Auto) 3.2, Eos % (Auto) 0.5, Baso % (Auto) 0.1, Absolute Neuts (auto) 6.9, Absolute Lymphs (auto) 0.90, Nucleated RBC % 0 06/10/21 07:00: Sodium 137, Potassium 3.0 L, Chloride 107, Carbon Dioxide 19.0 L , Anion Gap 11, BUN 18, Creatinine 0.80, Estim Creat Clear Calc 70.90, Est GFR (MDRD) Af Amer 93, Est GFR (MDRD) Non-Af 77, BUN/Creatinine Ratio 22.4 H, Glucose 136 H, Calcium 9.1, Total Bilirubin 0.50, AST 33, ALT 26, Alkaline Phosphatase 70, Total Protein 7.0, Albumin 2.6 L, Globulin 4.4 H, Albumin/Globulin Ratio 0.6 L Microbiology: Microbiology 06/07/21 22:14 Nasal Secretion SARS-CoV-2 Antigen (Rapid) - Final SARS-CoV-2 (COVID 19) D/C Instructions Discharge Diet: No restrictions Call your doctor if you observe: Fever of 101 or Higher, Shortness of breath, Dizziness, Fainting spells, Swelling in the ankles, Chest pain and Increased p alpitations (irregular heartbeat) Meaningful Use Info Meaningful Use Diagnoses (Choose all that apply): None applicable Discharge Plan Admission Admit Date/Time: 06/07/21 22:54 Attending Provider: Moisés Pham Primary Care Provider: Oscar Ayala Instructions Additional Instructions / Restrictions: She will complete quarantine on 06/19/2021. I do recommend that in July she get vaccinated against Covid. Discharge Orders/Prescriptions Prescriptions: New dexamethasone [Decadron] 6 mg tablet 6 mg PO DAILY Qty: 7 RF: 0 Continued trazodone 50 mg tablet 50 mg PO QHS RF: 0 sertraline 100 mg tablet 100 mg PO QHS RF: 0 ergocalciferol (vitamin D2) 1,250 mcg (50,000 unit) capsule 1,250 mcg PO QWEEK RF: 0 Referrals / Follow Up: Oscar Ayala MD [Primary Care Provider] - Within 1 Week Disposition Disposition (needs filled in before D/C Order can be placed): Home, Self Care Charges/Coding Visit Charges Inpatient E&M: 27788 Disch Hosp
== END 2021-06-10 15:59 | disposition home or self-care (01) | DRG 177 ==
LOC: ED 23:10 → PCU 23:27
PROVIDERS: Admitting Provider Hospitalist; Emergency Provider Emergency Medicine; PCP Student in an Organized Health Care Education/Training Program; Visit Provider Family Medicine
DX: U07.1 COVID-19 (principal); J12.82 Pneumonia due to coronavirus disease 2019; J96.01 Acute respiratory failure with hypoxia; Q60.0 Renal agenesis, unilateral; H66.90 Otitis media, unspecified, unspecified ear; E87.6 Hypokalemia; F41.9 Anxiety disorder, unspecified; F32.A Depression, unspecified; Z79.899 Other long term (current) drug therapy; Z28.3 Underimmunization status
CPT/HCPCS: 36415; 71275; 80048; 80053; 80076; 83690; 83735; 84484; 85025; 85610; 85730; 87426; 93005; 94667; 94668; 99251; 99284; J7030; J7040; J7050; Q9967; A4216; G0463; J1940; J2405

== ENCOUNTER 2021-06-20 08:09 | Inpatient (IN) | payer OTHER, SELFPAY ==
[2021-06-20] VITALS (10 sets, daily range): BP systolic 109–132; BP diastolic 57–84; PULSE 100–130; RESP 16–20; TEMP 36.5–38.5; O2SAT 93–100; BMI 25.9; BMI 26.6
--- NOTE | 2021-06-20 08:33 | EKG12_ITS ---
Test Reason : SOB Blood Pressure : / mmHG Vent. Rate : 116 BPM Atrial Rate : 116 BPM P-R Int : 154 ms QRS Dur : 080 ms QT Int : 322 ms P-R-T Axes : 034 000 -22 degrees QTc Int : 447 ms Sinus tachycardia Nonspecific ST and T wave abnormality Abnormal ECG Confirmed by KEVIN CLIFTON, ANNA ([id number]), proposal editor VINAY KINSEY ([id number]) on 06/21/2021 10:23:08 AM Referred By: LD Confirmed By:ANNA BROWN MD
--- NOTE | 2021-06-20 08:33 | CT_ITS ---
STUDY: CTA CHEST REASON FOR EXAM: Female, 60 years old. Chest pain, shortness of breath, COVID RADIATION DOSAGE (If Supplied By Facility): CTDIvol = ( 9.52 ) mGy, DLP = ( 389.33 ) mGycm TECHNIQUE: The examination was performed with the intravenous administration of IV 100mL Isovue-370. Post-processing of the angiographic images was performed, with multiplanar reformation and 3D reconstruction. Individualized dose optimization techniques were used for this CT. COMPARISON: Comparison is made with prior study dated 06/07/2021. FINDINGS: Multiple bilateral pulmonary arterial emboli are seen. Thrombus is also seen at the origin of the left interlobar pulmonary artery. Normal thoracic aorta and visualized great vessels. There is no demonstrated aortic dissection. Normal heart and pericardium. Normal mediastinum. Normal hilar regions. Normal visualized trachea and bronchi. The lungs are well expanded. There is diffuse bilateral pulmonary infiltrates involving both lungs worse in the lung bases. These have progressed as compared to prior study. Normal pleura. Normal chest wall structures. There are degenerative changes of thoracic spine. Normal visualized upper abdomen. CT/CTA Chest W/WO Contrast IMPRESSION: Multiple bilateral pulmonary embolism. There has been an increase in the diffuse bilateral pulmonary infiltrates involving both lungs worse in the lower lobes. Electronically Signed: Edgar Quiros MD at 10:00 EST , Service support ,
--- NOTE | 2021-06-20 08:34 | EDS_ITS ---
HPI History of Present Illness Chief Complaint: Chest Pain Narrative Narrative: Patient with past medical history of one functioning kidney, recent diagnosis of COVID-19 pneumonia, presents with chest pain on the right side since this morning at 1 AM, approximately 7-1/2 hours ago. She states that she was relatively healthy until around , approximately 11 days ago, that she was hospitalized for COVID-19. She was discharged on oxygen and uses 2 L during the day, and 4 L at night. She finished her steroid that she was given for a week on Friday. States she never had a high fever, but that has broken. The chest pain on the right side is new for her. It is in the front and back on the bottom part of her chest. She denies any nausea or vomiting. No dysuria. No other symptoms. Her pain is exacerbated by deep breathing and somewhat relieved with shallow breathing. [facility] Medical History (Updated 06/20/21 @ 11:17 by Antoine Courtney MD) COVID-19 Mitral valve prolapse Home Medications ergocalciferol (vitamin D2) 1,250 mcg PO QWEEK 06/08/21 [History Last Taken 06/05/21] sertraline 100 mg PO QHS 06/08/21 [History Last Taken 06/06/21] trazodone 50 mg PO QHS 06/08/21 [History Last Taken 06/06/21] Allergy/AdvReac Type Severity Reaction Status Date / Time FLUORIDE TOOTHPASTE Allergy Swelling Uncoded 06/20/21 08:10 Family History Other Diabetes Heart disease Multiple sclerosis Social History Smoking Status: Never smoker EXAM Physical Exam Const Vital Signs: 06/20/21 08:10 06/20/21 09:06 Temperature 98.5 F 98.5 F Temperature Source Temporal Temporal Pulse Rate 119 H 100 Respiratory Rate 20 H 17 Respiratory Effort Short of Breath Blood Pressure 117/69 113/57 L Blood Pressure Mean 85 75 Pulse Ox 95 100 Oxygen Delivery Method Nasal Cannula Nasal Cannula Oxygen Flow Rate (L/min) 4 4 MDM MDM MDM Narrative Medical decision making narrative: Chest pain work-up was pursued. However, I am more concerned about a pulmonary embolism given her recent COVID-19 pneumonia and need for oxygen with current tachycardia. EKG demonstrates sinus tachycardia at 116 bpm without ectopy or acute ST changes. There is no significant change from previous EKG except for tachycardia. Her high- sensitivity troponin is negative at 4. BNP is also negative. WBC count slightly elevated at 13.4, but she has been on steroids for a week. Hemoglobin stable at 12.3. Normal platelet count of 285. Coagulation studies are negative. These were obtained in the event that she would need heparin. Her electrolyte panel shows normal creatinine of 0.73 today. I have discussed the risk-benefit ratio of IV contrast with the patient and her because she states that she only has [address] has returned. She has multiple bilateral pulmonary emboli along with worsening Covid pneumonia. She was administered morphine for analgesia. Given her worsening Covid, and the bilateral multiple pulmonary emboli with thrombus noted in the left interlobar area, I discussed the patient with Dr. Hernandez for admission. Instead of heparin for anticoagulation he would like Eliquis 10 mg twice a day. [facility]. Lab Data Attestation: I reviewed the patient's lab results. Labs: Laboratory Results - last 24 hr 06/20/21 06/20/21 06/20/21 08:45 08:45 08:45 WBC 13.4 H RBC 4.71 Hgb 12.3 Hct 38.9 MCV 82.6 MCH 26.1 L MCHC 31.6 L RDW Std Deviation 40.5 RDW Coeff of Xochitl 13.7 Plt Count 285 MPV 8.6 Immature Gran % (Auto) 1.600 H Neut % (Auto) 87.4 H Lymph % (Auto) 4.5 L Ross % (Auto) 5.8 Eos % (Auto) 0.5 Baso % (Auto) 0.2 Absolute Neuts (auto) 11.7 H Absolute Lymphs (auto) 0.60 L Nucleated RBC % 0 Differential Comment SCANNED PT 13.3 INR 1.1 APTT 34.9 Sodium 136 Potassium 4.0 Chloride 101 Carbon Dioxide 28.0 Anion Gap 7 BUN 11 Creatinine 0.73 Estim Creat Clear Calc 77.70 Est GFR (MDRD) Af Amer 104 Est GFR (MDRD) Non-Af 86 BUN/Creatinine Ratio 15.0 Glucose 117 H Calcium 9.2 Troponin I High Sens 4 B-Natriuretic Peptide 06/20/21 08:45 WBC RBC Hgb Hct MCV MCH MCHC RDW Std Deviation RDW Coeff of Xochitl Plt Count MPV Immature Gran % (Auto) Neut % (Auto) Lymph % (Auto) Ross % (Auto) Eos % (Auto) Baso % (Auto) Absolute Neuts (auto) Absolute Lymphs (auto) Nucleated RBC % Differential Comment PT INR APTT Sodium Potassium Chloride Carbon Dioxide Anion Gap BUN Creatinine Estim Creat Clear Calc Est GFR (MDRD) Af Amer Est GFR (MDRD) Non-Af BUN/Creatinine Ratio Glucose Calcium Troponin I High Sens B-Natriuretic Peptide 5.2 Radiography Diagnostic Testing: Clinical Impression(s) from Imaging Studies Chest CTA 06/20/21 08:33 IMPRESSION: Multiple bilateral pulmonary embolism. There has been an increase in the diffuse bilateral pulmonary infiltrates involving both lungs worse in the lower lobes. Electronically Signed: Edgar Quiros MD at 10:00 EST , Service support , Discharge Plan Dx/Rx/DC Orders Clinical Impression: Pneumonia due to COVID-19 virus, Bilateral pulmonary embolism, Chest pain, pleuritic Disposition Disposition: Acute Care Hospital [facility]
[2021-06-20 08:59] LABS: Absolute Neutrophil Count 11.7 X10^3/uL (2.0-7.7); Basophil# 0.03 X10^3/uL; Basophil% 0.2 % (0-1); Eosinophil# 0.07 X10^3/uL; Eosinophils% 0.5 % (0-5); Hematocrit 38.9 % (37-47); Hemoglobin 12.3 g/dL (12.0-15.0); Lymphocyte % 4.5 % (19-41); Mean Corp Hgb Conc 31.6 g/dL (32-36); Mean Corpuscular Hgb 26.1 pg (27.0-32.0); Mean Corpuscular Volume 82.6 fL (81-99); Mean Platelet Vol. 8.6 fl (6.2-12.0); Monocyte# 0.78 X10^3/uL; Monocyte% 5.8 % (0-10); NRBC Flagged by Analyzer 0 % (0-5); Neutrophil # 11.71 X10^3/uL (2.7-7.7); Neutrophil % 87.4 % (47-70); POSITIVE DIFFERENTIAL YES; Platelet Count 285 K/mm3 (150-450); RBC Distribution Width CV 13.7 % (11.6-14.6); RBC Distribution Width SD 40.5 fl (35.1-43.9); Red Blood Count 4.71 M/mm3 (4.2-5.4); White Blood Count 13.4 K/mm3 (4.4-11.0)
[2021-06-20] MEDS: 0.9% Normal Saline 1,000 ML 1000 ML IV (09:05)
[2021-06-20 09:17] LABS: Anion Gap 7 (5-15); BUN 11 mg/dL (7-18); Calcium,Total 9.2 mg/dL (8.5-10.1); Chloride 101 mmol/L (98-107); Creatinine, Serum 0.73 mg/dL (0.55-1.02); EST Glomerular Filtration Rate 86 mL/min (>60); Est Glom Filt Rate - Afr Amer 104 mL/min (>60); Glucose 117 mg/dL (74-106); Sodium Level 136 mmol/L (136-145); Troponin-I HS 4 pg/mL (3.0-54.0)
[2021-06-20 09:20] LABS: Differential Indicated SCAN CRITERIA MET
[2021-06-20 09:21] LABS: Differential Comment SCANNED
[2021-06-20 09:36] LABS: BNP,B-Type NATRIURETIC PEPTIDE 5.2 pg/mL (0-100)
[2021-06-20 09:39] LABS: International Normalized Ratio 1.1; Partial Thromboplast Time 34.9 Seconds (24.1-36.2); Prothrombin Time (Protime)PT. 13.3 SECONDS (11.7-14.9)
--- NOTE | 2021-06-20 10:18 | NURSING ---
DR ERIK JAFFE
--- NOTE | 2021-06-20 10:44 | NURSING ---
MED SURG ERIK BILATERAL PULMONARY EMBOLI, COVID
[2021-06-20] MEDS: Ondansetron 4 MG/2 ML Vial IV (11:17)
[2021-06-20] MEDS: Morphine 4 MG/ML Syringe IV (11:20)
[2021-06-20] MEDS: APIXABAN 5 MG TABLET 10 MG PO ×2 (11:27→20:01)
--- NOTE | 2021-06-20 12:00 | PCM.HP.STD ---
HPI - General General Date of Admission: 06/20/21 Date of Service: 06/20/21 Chief Complaint: chest pain HPI Narrative SOUTH ZAPATA, is a 60 F who presents with acute right sided chest pain. Pt was recently discharged on the with a 3 day stay with COVID 19. She was unvaccinated. She was discharged with oxygen. She presented to ED and underwent a CTA that showed multiple bilateral pulmonary emboli. She was having significant pain. Noted to be tachycardic. COUNTS INCLUDE 234 BEDS AT THE [facility] Medical History Bilateral pulmonary embolism COVID-19 COVID-19 Mitral valve prolapse Home Medications ergocalciferol (vitamin D2) 1,250 mcg PO QWEEK 06/08/21 [History Last Taken 06/05/21] sertraline 100 mg PO QHS 06/08/21 [History Last Taken 06/06/21] trazodone 50 mg PO QHS 06/08/21 [History Last Taken 06/06/21] Allergy/AdvReac Type Severity Reaction Status Date / Time FLUORIDE TOOTHPASTE Allergy Swelling Uncoded 06/20/21 08:10 Family History Other Diabetes Heart disease Multiple sclerosis Social History Smoking Status: Never smoker ROS ROS Narrative All ROS negative except as mentioned in HPI. Vital Signs Vital Signs Vital Signs: 06/20/21 08:10 06/20/21 09:06 06/20/21 11:29 Temperature 36.9 C 36.9 C 37.2 C Temperature Source Temporal Temporal Temporal Pulse Rate 119 H 100 105 H Respiratory Rate 20 H 17 20 H Respiratory Effort Short of Breath Blood Pressure 117/69 113/57 L 132/84 H Blood Pressure Mean 85 75 100 Pulse Ox 95 100 98 Oxygen Delivery Method Nasal Cannula Nasal Cannula Room Air Oxygen Flow Rate (L/min) 4 4 Weight Weight: 75.296 kg Body Mass Index (BMI) 25.9 Physical Exam Const alert and no apparent distress General Appearance: cooperative HEENT normocephalic, head/scalp atraumatic, hearing grossly normal bilaterally and moist oral mucous membranes Eyes PERRL and EOMs intact bilaterally Neck no lymphadenopathy Resp normal respiratory effort, no retractions, no use of accessory muscles and clear to auscultation bilaterally Cardio regular rate, regular rhythm, S1 normal heart sound and S2 normal heart sound GI normal to inspection, nondistended, normoactive bowel sounds, soft to palpation, non-tender and non-distended Extremity normal to inspection Skin no rashes or lesions noted and no wounds Neuro Sensorium / Orientation: awake and alert Psych affect normal Results Lab / Micro Data Attestation: I reviewed the patient's lab results. Result Diagrams: 06/20/21 08:45 06/20/21 08:45 Labs: Laboratory Results - last 24 hr 06/20/21 08:45: WBC 13.4 H, RBC 4.71, Hgb 12.3, Hct 38.9, MCV 82.6, MCH 26.1 L, MCHC 31.6 L, RDW Std Deviation 40.5, RDW Coeff of Xochitl 13.7, Plt Count 285, MPV 8.6, Immature Gran % (Auto) 1.600 H, Neut % (Auto) 87.4 H, Lymph % (Auto) 4.5 L, Ada % (Auto) 5.8, Eos % (Auto) 0.5, Baso % (Auto) 0.2, Absolute Neuts (auto) 11.7 H, Absolute Lymphs (auto) 0.60 L, Nucleated RBC % 0, Differential Comment SCANNED 06/20/21 08:45: PT 13.3, INR 1.1, APTT 34.9 06/20/21 08:45: Sodium 136, Potassium 4.0, Chloride 101, Carbon Dioxide 28.0, Anion Gap 7, BUN 11, Creatinine 0.73, Estim Creat Clear Calc 77.70, Est GFR (MDRD) Af Amer 104, Est GFR (MDRD) Non-Af 86, BUN/Creatinine Ratio 15.0, Glucose 117 H, Calcium 9.2, Troponin I High Sens 4 06/20/21 08:45: B-Natriuretic Peptide 5.2 Radiology Impression Chest CTA 06/20/21 08:33 IMPRESSION: Multiple bilateral pulmonary embolism. There has been an increase in the diffuse bilateral pulmonary infiltrates involving both lungs worse in the lower lobes. Electronically Signed: Edgar Quiros MD at 10:00 EST , Service support , Assessment & Plan Assessment/Plan (1) Bilateral pulmonary embolism: PLAN: 1. Acute PE 2/2 hypercoagulability from COVID 19 apixaban, treat for 6 months. tachycardic. Doubt strain, but cycle troponins and echo. 2. COVID 19 still with infiltrates continue oxygen was not vaccinated 3. Insomnia had been on ambien in past, but has not been it for some time now. She said her PCP was not starting pts over 60 on it. Charges/Coding Visit Charges Inpatient E&M: 03951 Init Hosp L2
--- NOTE | 2021-06-20 12:01 | ED.RN ---
THIS NURSE SPOKE WITH THE CHARGE NURSE ON PCU. OK TO HAVE A VISITOR. WILL NOT BE IN ISOLATION
--- NOTE | 2021-06-20 12:18 | ECHOD_ITS ---
Reason For Study: EMBOLI Procedure This was a 2D Doppler, Color Flow transthoracic echocardiogram. The exam was of adequate technical quality. Exam performed portable in patient room. Left Ventricle Normal LV size. Left ventricular systolic function is normal. The estimated ejection fraction is 70 %. No evidence for diastolic dysfunction. No regional wall motion abnormalities noted. Right Ventricle Normal RV size. Normal systolic function. Atria Normal left atrium. Normal right atrium. No doppler evidence for ASD. Mitral Valve There is no mitral annular calcification. Normal mitral valve. Trivial mitral valve insufficiency. Tricuspid Valve Normal tricuspid valve. Trivial tricuspid valve insufficiency. Unable to estimate RV systolic pressure due to insufficient tricuspid regurgitant envelope. Aortic Valve Trisinus/trileaflet aortic valve. Normal aortic valve. Pulmonic Valve The pulmonic valve is not well visualized. Trivial pulmonic valve insufficiency. Great Vessels Normal sized aortic root. Pericardium/Pleural No pericardial effusion. MMode/2D Measurements & Calculations LVIDd: 4.5 cm IVSd: 0.82 cm Ao root diam: 3.1 cm LVIDs: 2.7 cm LVPWd: 0.91 cm RVDd: 3.4 cm FS: 40.3 % LAV(MOD-bp): 30.0 ml LVAd ap4: 29.3 cm2 SV(MOD-sp4): 64.7 ml LAV(MOD-bp) Indexed: 16.1 ml/m2 LVLd ap4: 7.5 cm LAV(MOD-sp2): 29.3 ml EDV(MOD-sp4): 92.5 ml LAV(MOD-sp4): 29.3 ml EDV(sp4-el): 97.6 ml LVAs ap4: 14.3 cm2 LVLs ap4: 6.1 cm ESV(MOD-sp4): 27.7 ml ESV(sp4-el): 28.4 ml EF(MOD-sp4): 70.0 % EF(sp4-el): 70.9 % SV(sp4-el): 69.2 ml LA A4 area: 12.6 cm2 LA dimension(2D): 2.9 cm RA A4 area: 12.5 cm2 Time Measurements MV dec time: 0.14 sec Doppler Measurements & Calculations MV E max sixto: 55.6 cm/sec Lat Peak E' Sixto: 10.3 cm/sec Med Peak E' Sixto: 9.1 cm/sec MV A max sixto: 99.3 cm/sec E/E' lat: 5.4 E/E' med: 6.1 MV E/A: 0.56 Ao V2 max: 134.1 cm/sec LV V1 max: 128.2 cm/sec PA V2 max: 107.5 cm/sec Ao max P.2 mmHg LV V1 max P.6 mmHg ECHO/Echo Complete Interpretation Summary Left ventricular systolic function is normal. The estimated ejection fraction is 70 %. Trivial mitral valve insufficiency. Trivial tricuspid valve insufficiency. Trivial pulmonic valve insufficiency. Unable to estimate RV systolic pressure due to insufficient tricuspid regurgita nt envelope. No evidence for diastolic dysfunction. Ordering Physician: Rajinder Hernandez Referring Physician: CHERYL GRAFF Performed By: Sally Toro RDCS
--- NOTE | 2021-06-20 12:24 | PCS.PANDOC ---
PANDEMIC DOCUMENTATION INITIATED: Date: 06/20/2021 Time: 0978
[2021-06-20 14:14] LABS: Troponin-I HS 4 pg/mL (3.0-54.0)
[2021-06-20] MEDS: Acetaminophen 325 MG Tablet 650 MG PO ×2 (14:56→21:18)
[2021-06-20] MEDS: oxyCODONE 5 MG Tablet PO ×2 (14:57→19:59)
[2021-06-20 16:17] LABS: Troponin-I HS 5 pg/mL (3.0-54.0)
[2021-06-20] MEDS: Sertraline 100 MG Tablet PO (20:00)
[2021-06-20] MEDS: traZODone 100 MG Tablet PO (20:00)
[2021-06-21] VITALS (8 sets, daily range): BP systolic 115–126; BP diastolic 63–88; PULSE 87–113; RESP 16–18; TEMP 36.8–37.9; O2SAT 86–98
[2021-06-21] MEDS: Ibuprofen 400 MG Tablet PO (00:03)
[2021-06-21 06:22] LABS: Absolute Lymphocyte Count 0.25 X10^3/uL (0.83-4.51); Absolute Neutrophil Count 11.4 X10^3/uL (2.0-7.7); Basophil# 0.03 X10^3/uL; Basophil% 0.2 % (0-1); Eosinophil# 0.15 X10^3/uL; Eosinophils% 1.2 % (0-5); Hematocrit 35.3 % (37-47); Hemoglobin 11.5 g/dL (12.0-15.0); Lymphocyte # 0.25 X10^3/ul (0.83-4.51); Mean Corp Hgb Conc 32.6 g/dL (32-36); Mean Corpuscular Hgb 26.6 pg (27.0-32.0); Mean Corpuscular Volume 81.7 fL (81-99); Monocyte# 0.66 X10^3/uL; Monocyte% 5.2 % (0-10); NRBC Flagged by Analyzer 0 % (0-5); Neutrophil # 11.42 X10^3/uL (2.7-7.7); Neutrophil % 90.1 % (47-70); POSITIVE DIFFERENTIAL YES; Platelet Count 230 K/mm3 (150-450); RBC Distribution Width CV 13.9 % (11.6-14.6); Red Blood Count 4.32 M/mm3 (4.2-5.4); White Blood Count 12.7 K/mm3 (4.4-11.0)
[2021-06-21 06:30] LABS: Differential Indicated SCAN CRITERIA MET
[2021-06-21 06:41] LABS: Differential Comment SCANNED
[2021-06-21 06:45] LABS: Anion Gap 7 (5-15); BUN 12 mg/dL (7-18); BUN/Creat Ratio 15.4 RATIO (10-20); Calcium,Total 9.3 mg/dL (8.5-10.1); Chloride 100 mmol/L (98-107); Creatinine, Serum 0.78 mg/dL (0.55-1.02); EST Glomerular Filtration Rate 80 mL/min (>60); Est Glom Filt Rate - Afr Amer 96 mL/min (>60); Estimated Creatinine Clearance 72.72 ml/min; Glucose 108 mg/dL (74-106); Potassium 4.5 mmol/L (3.5-5.1); Sodium Level 135 mmol/L (136-145)
[2021-06-21] MEDS: Acetaminophen 325 MG Tablet 650 MG PO (08:16)
[2021-06-21] MEDS: oxyCODONE 5 MG Tablet PO ×2 (08:17→12:21)
[2021-06-21] MEDS: APIXABAN 5 MG TABLET 10 MG PO (08:17)
--- NOTE | 2021-06-21 09:54 | PCM.DC ---
Discharge Instructions Diet Discharge Diet: No restrictions Activity Discharge Activity: Return to Normal Activity (ease back into normal routine. ) Dressing / Incision Call your doctor if you observe: Fever of 101 or Higher and Shortness of breath Follow Up Care Test Results: Test results from this visit will be discussed in further detail at your follow-up appointment, if applicable. Discharge Plan Admission Admit Date/Time: 06/20/21 11:55 Primary Reason for Your Visit: pulmonary emboli Attending Provider: Rajinder Hernandez Primary Care Provider: Oscar Ayala Discharge Orders/Prescriptions Prescriptions: New trazodone 100 mg Tablet 100 mg PO QHS Qty: 30 RF: 0 acetaminophen [Tylenol] 325 mg Tablet 1,000 mg PO Q8H PRN PRN (Reason: Pain Score 1-10/Temp > 100.7 F) Qty: 0 RF: 0 oxycodone 5 mg Tablet 5 mg PO Q6H PRN (Reason: pain (scale score 4-10)) 3 Days Qty: 12 RF: 0 levofloxacin 500 mg tablet 500 mg PO DAILY Qty: 5 RF: 0 Eliquis 5 mg tablet 5 mg PO BID Qty: 60 RF: 0 Continued sertraline 100 mg tablet 100 mg PO QHS RF: 0 ergocalciferol (vitamin D2) 1,250 mcg (50,000 unit) capsule 1,250 mcg PO QWEEK RF: 0 Discontinued trazodone 50 mg tablet 50 mg PO QHS RF: 0 Referrals / Follow Up: Cooper Hernandez MD [STAFF PHYSICIAN] - See Referral Note (as needed in 6-8 weeks if still with shortness of breath) Oscar Ayala MD [Primary Care Provider] - Within 2 Weeks Disposition Disposition (needs filled in before D/C Order can be placed): Home, Self Care
--- NOTE | 2021-06-21 10:04 | DS.PCM_ITS ---
Providers Date of Admission: 06/20/21 Primary Care Physician: Dr. Oscar Graff MD Reason For Visit: BILATERAL PULMONARY EMBOLI, COVID Diagnosis Discharge Diagnosis (1) Bilateral pulmonary embolism: Status: Acute Code(s): I26.99 - Other pulmonary embolism without acute cor pulmonale Medications at Discharge Home Medications ergocalciferol (vitamin D2) 1,250 mcg PO QWEEK 06/08/21 sertraline 100 mg PO QHS 06/08/21 acetaminophen [Tylenol] 1,000 mg PO Q8H PRN PRN #0 tab 06/21/21 apixaban [Eliquis] 5 mg PO BID #60 tab 06/21/21 levofloxacin 500 mg PO DAILY #5 tab 06/21/21 oxycodone 5 mg PO Q6H PRN 3 Days #12 tab 06/21/21 trazodone 100 mg PO QHS #30 tab 06/21/21 Hospital Course Operations None Procedures 2-D Echocardiogram Summary of Care Provided Minutes Spent on Discharge: 32 Hospital Course: 58-year-old female recently discharged with COVID-19 and on oxygen presents with acute chest pain and shortness of breath. Patient was found to have PE on CT angiogram of her chest. Patient was started on anticoagulation with apixaban. Patient is likely hypercoagulable due to her recent COVID-19 infection. Patient has never had any venous thromboembolic disease previously. Troponins were negative and echocardiogram was negative so there is no evidence of any cardiac strain. Patient does have chest pains likely due to pulmonary emboli themselves may be possible pulmonary infarct. Patient's hospitalization was uncomplicated though she did have some low-grade temperatures. This could be related with her resolving COVID-19 but also pulmonary emboli. Patient will be put on some empiric levofloxacin to cover any underlying infection. Patient one of her big complaints, was insomnia. Patient had been on zolpidem in the past. I did not start her on that but did increase her trazodone from 50-100. Patient will receive prescription for that upon discharge. Patient does have pain in her chest reassurance provided to her. Patient is told that she can take without milligrams of acetaminophen 3 times daily but also she will give a 3-day supply of oxycodone. She states that her pain is much better overall. Patient was very anxious. I tried to probe that but patient stated that she has no concerns about caring for her family but she is very overwhelmed with her hansel Covid and all the sequelae that she has been dealing with it since. Patient very anxious overall. Explained to her that the course of her illness should continue to improve but it is unclear if she will ever get back to her [id number] baseline. Patient advised that she could have development of fibrosis down the road. She does have continued dyspnea that may be advisable to follow-up with the boat canvas installer to have repeat imaging but told patient that would not advise for 6 to 8 weeks. Physical Exam Const alert and no apparent distress Resp normal respiratory effort and no retractions Resp Narrative: bibasilar crackles Cardio regular rate, regular rhythm, S1 normal heart sound and S2 normal heart sound GI normal to inspection, nondistended, normoactive bowel sounds, soft to palpation, non-tender and non-distended Weight / BMI Weight Weight: 77 kg Body Mass Index (BMI) 26.6 ABG / Lab / Microbiology Data Result Diagrams: 06/21/21 05:34 06/21/21 05:34 Laboratory: Laboratory Results - last 24 hr 06/20/21 13:05: Troponin I High Sens 4 06/20/21 15:49: Troponin I High Sens 5 06/21/21 05:34: WBC 12.7 H, RBC 4.32, Hgb 11.5 L, Hct 35.3 L, MCV 81.7, MCH 26.6 L, MCHC 32.6, RDW Std Deviation 41.0, RDW Coeff of Xochitl 13.9, Plt Count 230, MPV 9.0, Immature Gran % (Auto) 1.300 H, Neut % (Auto) 90.1 H, Lymph % (Auto) 2.0 L , [place] % (Auto) 5.2, Eos % (Auto) 1.2, Baso % (Auto) 0.2, Absolute Neuts (auto) 11.4 H, Absolute Lymphs (auto) 0.25 L, Nucleated RBC % 0, Differential Comment SCANNED 06/21/21 05:34: Sodium 135 L, Potassium 4.5, Chloride 100, Carbon Dioxide 28.0, Anion Gap 7, BUN 12, Creatinine 0.78, Estim Creat Clear Calc 72.72, Est GFR (MDRD) Af Amer 96, Est GFR (MDRD) Non-Af 80, BUN/Creatinine Ratio 15.4, Glucose 108 H, Calcium 9.3 Radiography Diagnostic Testing: Radiology Impression Echocardiogram 06/20/21 12:18 Interpretation Summary Left ventricular systolic function is normal. The estimated ejection fraction is 70 %. Trivial mitral valve insufficiency. Trivial tricuspid valve insufficiency. Trivial pulmonic valve insufficiency. Unable to estimate RV systolic pressure due to insufficient tricuspid regurgitant envelope. No evidence for diastolic dysfunction. Ordering Physician: Rajinder Hernandez Referring Physician: OSCAR GRAFF Performed By: Sally Toro RDCS D/C Instructions Discharge Diet: No restrictions Call your doctor if you observe: Fever of 101 or Higher and Shortness of breath Meaningful Use Info Meaningful Use Diagnoses (Choose all that apply): None applicable Discharge Plan Admission Admit Date/Time: 06/20/21 11:55 Primary Reason for Your Visit: pulmonary emboli Attending Provider: Rajinder Hernandez Primary Care Provider: Oscar Graff Discharge Orders/Prescriptions Prescriptions: New trazodone 100 mg Tablet 100 mg PO QHS Qty: 30 RF: 0 acetaminophen [Tylenol] 325 mg Tablet 1,000 mg PO Q8H PRN PRN (Reason: Pain Score 1-10/Temp > 100.7 F) Qty: 0 RF: 0 oxycodone 5 mg Tablet 5 mg PO Q6H PRN (Reason: pain (scale score 4-10)) 3 Days Qty: 12 RF: 0 levofloxacin 500 mg tablet 500 mg PO DAILY Qty: 5 RF: 0 Eliquis 5 mg tablet 5 mg PO BID Qty: 60 RF: 0 Continued sertraline 100 mg tablet 100 mg PO QHS RF: 0 ergocalciferol (vitamin D2) 1,250 mcg (50,000 unit) capsule 1,250 mcg PO QWEEK RF: 0 Discontinued trazodone 50 mg tablet 50 mg PO QHS RF: 0 Referrals / Follow Up: Cooper Hernandez MD [STAFF PHYSICIAN] - See Referral Note (as needed in 6-8 weeks if still with shortness of breath) Oscar Graff MD [Primary Care Provider] - Within 2 Weeks Disposition Disposition (needs filled in before D/C Order can be placed): Home, Self Care Charges/Coding Visit Charges Inpatient E&M: 80345 Disch Hosp
--- NOTE | 2021-06-21 10:09 | CASEMGMT ---
Grace ERAZO aware that pt needs tested on 2L at rest and 4L w/ exertion as this is what she was sent home on previously, voices understanding. Kurt ERAZO CM
--- NOTE | 2021-06-21 10:30 | CASEMGMT ---
Readmission chart review: 06/07-06/10/21 COVID, resp failure 06/20/21-current Bilat PE's, COVID Pt was initially admitted with COVID and sent home with home oxygen thru [employer] 2L at rest and 4L w/ exertion. Pt was not vaccinated for COVID. Pt returned 10 days later for sharp CP to right side and was re-admitted for bilateral PE's, COVID. Pt started on Eliquis and also sent home with script for same. Pt also qualified for increased home oxygen, 3L at rest and 5L w/ exertion. New order faxed to [employer] and [employer] to be updated with new script. Pt's brought e-tank in for pt to be discharged home on. Pt's trazodone increased to 100mg at bedtime d/t increased anxiety. CM to follow for any further discharge planning/needs. SStjamie ERAZO CM
--- NOTE | 2021-06-21 10:40 | CASEMGMT ---
Call to Alessia in [facility] retail pharmacy to check on pt's Eliquis coverage/co-pay. Alessia states she will call this RN CM back once meds run. CM to follow for meds and oxygen testing. Kurt ERAZO CM
--- NOTE | 2021-06-21 11:12 | CASEMGMT ---
Per Grace ERAZO, pt qualifies for 3L at rest and 5L w/ exertion. Pt already has home oxygen set up thru [employer] but new order sent for increased home oxygen at this time. Pt also to be sent home on Eliquis and per Curtis in [facility] pharmacy, pt's co-pay is $33 but 30 day free trial card applied. Pharmacy to bring meds to bed. Pt has been up ad shelia in room but does have anxiety per Dr. Hernandez and Grace ERAZO. Pt voices no further questions/concerns/needs. Kurt ERAZO CM
== END 2021-06-21 13:00 | disposition home or self-care (01) | DRG 176 ==
LOC: ED 09:23 → PCU 11:17
PROVIDERS: Emergency Provider Emergency Medicine; PCP Student in an Organized Health Care Education/Training Program
DX: I26.99 Other pulmonary embolism without acute cor pulmonale (principal); D68.69 Other thrombophilia; U09.9 Post COVID-19 condition, unspecified; I08.1 Rheumatic disorders of both mitral and tricuspid valves; Z28.3 Underimmunization status
CPT/HCPCS: 36415; 71275; 80048; 83880; 84484; 85025; 85610; 85730; 93005; 93306; 99285; J7030; Q9967; A4216; J2405

== ENCOUNTER 2021-06-23 09:53 | Emergency (ER) | payer OTHER, SELFPAY ==
[2021-06-23 10:01] VITALS: BP 122/84; PULSE 110; RESP 20; TEMP 37.7; O2SAT 96; BMI 26.6
[2021-06-23 10:03] VITALS: BP 117/77; PULSE 112; RESP 20; TEMP 37.7; O2SAT 94
[2021-06-23 10:26] VITALS: TEMP 37.7
--- NOTE | 2021-06-23 10:26 | RAD_ITS ---
STUDY: X-RAY CHEST REASON FOR EXAM: Female, 60 years old. Shortness of breath TECHNIQUE: Single AP portable view of the chest. COMPARISON: CTA chest of 07/02/2021. FINDINGS: Diffuse bilateral interstitial and alveolar infiltrates are seen bilaterally. Probable trace of right pleural effusion. There is borderline cardiomegaly. Normal mediastinum and margarita. Normal visualized pulmonary arteries. There is atherosclerotic tortuosity of the aortic arch and descending thoracic aorta. No demonstrated acute osseous changes. There is no demonstrated abnormality of the visualized soft tissue structures of the upper abdomen. RAD/Chest 1 View (Portable) IMPRESSION: Diffuse bilateral infiltrates concerning for multifocal pneumonia Electronically Signed: Kashmir Padgett, at 10:57 EST Tel , Service support ,
--- NOTE | 2021-06-23 10:26 | EKG12_ITS ---
Test Reason : FEVER Blood Pressure : / mmHG Vent. Rate : 101 BPM Atrial Rate : 101 BPM P-R Int : 152 ms QRS Dur : 086 ms QT Int : 334 ms P-R-T Axes : 023 010 -13 degrees QTc Int : 433 ms Sinus tachycardia Nonspecific T wave abnormality Abnormal ECG Confirmed by KEVIN CLIFTON, ANNA ([id number]), assignment desk editor VINAY KINSEY ([id number]) on 06/25/2021 10:22:35 AM Referred By: SWATI/RODNEY Confirmed By:ANNA BROWN MD
--- NOTE | 2021-06-23 10:36 | EDS_ITS ---
HPI History of Present Illness Chief Complaint: Fever Informant: patient and spouse/S.O. Onset/Context/Timing Onset: Days Narrative Narrative: Patient presents secondary to increased fever. Patient started becoming ill around and was diagnosed with Covid. She had a short hospital stay secondary to Covid pneumonia. She returned to the hospital on the and was diagnosed with bilateral PEs. She was diagnosed on the with Eliquis. She is currently on oxygen, 2 L during the day and 4 L at night. Patient presents back to the hospital today because pain is not well controlled and they have had trouble controlling her fever. Fever has been in the 101 range since 4 AM. No improvement with Tylenol. She was advised not to take ibuprofen secondary to Eliquis use. She called her primary care physician who advised her to come back to the emergency room. [facility] Medical History Bilateral pulmonary embolism COVID-19 Mitral valve prolapse Home Medications ergocalciferol (vitamin D2) 1,250 mcg PO QWEEK 06/08/21 [History Last Taken 06/05/21] sertraline 100 mg PO QHS 06/08/21 [History Last Taken 06/06/21] acetaminophen [Tylenol] 1,000 mg PO Q8H PRN PRN #0 tab 06/21/21 [Rx Last Taken Unknown] apixaban [Eliquis] 5 mg PO BID #60 tab 06/21/21 [Rx Last Taken Unknown] levofloxacin 500 mg PO DAILY #5 tab 06/21/21 [Rx Last Taken Unknown] oxycodone 5 mg PO Q6H PRN 3 Days #12 tab 06/21/21 [Rx Last Taken Unknown] trazodone 100 mg PO QHS #30 tab 06/21/21 [Rx Last Taken Unknown] oxycodone 5 mg PO Q6H PRN 3 Days #10 cap 06/23/21 [Rx Last Taken Unknown] zolpidem [Ambien] 5 mg PO QHS PRN #3 tab 06/23/21 [Rx Last Taken Unknown] Allergy/AdvReac Type Severity Reaction Status Date / Time FLUORIDE TOOTHPASTE Allergy Swelling Uncoded 06/23/21 10:03 Family History Other Diabetes Heart disease Multiple sclerosis Social History Smoking Status: Never smoker ROS ROS ED Constitutional Constitutional ED: Reports fever(s); Denies chills Eyes Eyes: Denies change in vision ENT ENT ED: Denies sore throat Cardiovascular Cardiovascular: Reports chest pain Respiratory/Chest Respiratory/Chest: Reports cough and dyspnea Gastrointestinal Gastrointestinal: Denies abdominal pain, diarrhea, nausea or vomiting Genitourinary Genitourinary ED: Denies dysuria Musculoskeletal Musculoskeletal: Reports myalgias; Denies back pain Integumentary Denies rash Neurologic Neurologic: Reports weakness Allergic/Immunologic Allergic/Immunologic ED: Denies urticaria EXAM Physical Exam Const Vital Signs: 06/23/21 10:01 06/23/21 10:03 06/23/21 10:10 Temperature 99.9 F H 99.9 F H Temperature Source Temporal Temporal Pulse Rate 110 H 112 H Respiratory Rate 20 H 20 H Respiratory Effort Normal Non-Labored Respiratory Pattern Normal Blood Pressure 122/84 H 117/77 Blood Pressure Mean 96 90 Pulse Ox 96 94 Oxygen Delivery Method Nasal Cannula Nasal Cannula Oxygen Flow Rate (L/min) 4 4 06/23/21 10:26 Temperature 99.9 F H Temperature Source Temporal Pulse Rate Respiratory Rate Respiratory Effort Respiratory Pattern Blood Pressure Blood Pressure Mean Pulse Ox Oxygen Delivery Method Oxygen Flow Rate (L/min) Positive well nourished and well developed General Appearance ED: well developed HEENT Reports moist mucous membranes Eyes PERRL and EOMs intact bilaterally Neck supple Chest Wall inspection of chest normal and palpation of chest normal Resp normal respiratory effort and clear to auscultation bilaterally Cardio regular rhythm Rate: tachycardic GI non-tender Palpation: soft Extremity normal to inspection General Extremety ED: Negative for edema General Extremity: Negative for edema Neuro oriented x3 Sensorium / Orientation: alert Skin no rashes or lesions noted MDM MDM MDM Narrative Medical decision making narrative: Oral temperature obtained on myself is 97.7. EKG, chest x-ray, lab work obtained. Lab Data Attestation: I reviewed the patient's lab results. Labs: Laboratory Results - last 24 hr 06/23/21 06/23/21 10:35 10:35 WBC 8.5 RBC 4.00 L Hgb 10.5 L Hct 33.2 L MCV 83.0 MCH 26.3 L MCHC 31.6 L RDW Std Deviation 40.5 RDW Coeff of Xochitl 13.4 Plt Count 260 MPV 9.0 Immature Gran % (Auto) 1.100 H Neut % (Auto) 83.5 H Lymph % (Auto) 5.9 L [place] % (Auto) 7.5 Eos % (Auto) 1.5 Baso % (Auto) 0.5 Absolute Neuts (auto) 7.1 Absolute Lymphs (auto) 0.50 L Nucleated RBC % 0 Differential Comment SCANNED Sodium 132 L Potassium 4.0 Chloride 98 Carbon Dioxide 27.0 Anion Gap 7 BUN 8 Creatinine 0.70 Estim Creat Clear Calc 81.03 Est GFR (MDRD) Af Amer 109 Est GFR (MDRD) Non-Af 90 BUN/Creatinine Ratio 11.4 Glucose 113 H Calcium 9.4 Troponin I High Sens < 3 L Radiography Chest X-Ray - ED: 1 View, Read by ED Physician, Right Infiltrate and Left Infiltrate Diagnostic Testing: Clinical Impression(s) from Imaging Studies Chest X-Ray 06/23/21 10:26 IMPRESSION: Diffuse bilateral infiltrates concerning for multifocal pneumonia Electronically Signed: Kashmir Padgett, at 10:57 EST Tel , Service support , EKG Initial EKG: Attestation: I personally reviewed and interpreted this EKG as follows: Interpretation: Sinus Tachycardia (Sinus tach at 101. Unspecific T wave flattening in the lateral leads. No ST change.) Treatment and Re-Evaluation Comments:: On repeat evaluation patient resting comfortably. Test results discussed with patient and at bedside. Troponin is less than 3. EKG reveals no ischemic changes. Chest x-ray continues to show bilateral pneumonia which is not unexpected given her illness course. Patient is having trouble sleeping at night. She is requesting Ambien. I will write her for 3 days only and she can talk to her primary care physician on Friday. I will also write her for more pain medication as the oxycodone is not controlling her pain and she is been try to spread it out to last the weekend. She does have pulse ox meter at home and will continue to monitor her symptoms. Return instructions provided. Discharge Plan Triage Chief Complaint: Fever ED Provider: Lashanda Means Dx/Rx/DC Orders Clinical Impression: COVID-19, Chest pain, Fever Instructions: Coronavirus Disease 2019 (COVID-19): Overview, Coronavirus Disease 2019 (COVID-19): Caring for Yourself or Others Prescriptions: New zolpidem [Ambien] 5 mg tablet 5 mg PO QHS PRN (Reason: insomnia) Qty: 3 RF: 0 oxycodone 5 mg capsule 5 mg PO Q6H PRN (Reason: pain) 3 Days Qty: 10 RF: 0 No Action sertraline 100 mg tablet 100 mg PO QHS RF: 0 ergocalciferol (vitamin D2) 1,250 mcg (50,000 unit) capsule 1,250 mcg PO QWEEK RF: 0 trazodone 100 mg Tablet 100 mg PO QHS Qty: 30 RF: 0 acetaminophen [Tylenol] 325 mg Tablet 1,000 mg PO Q8H PRN PRN (Reason: Pain Score 1-10/Temp > 100.7 F) Qty: 0 RF: 0 oxycodone 5 mg Tablet 5 mg PO Q6H PRN (Reason: pain (scale score 4-10)) 3 Days Qty: 12 RF: 0 levofloxacin 500 mg tablet 500 mg PO DAILY Qty: 5 RF: 0 Eliquis 5 mg tablet 5 mg PO BID Qty: 60 RF: 0 Primary Care Provider: Oscar Ayala Referrals: Oscar Ayala MD [Primary Care Provider] - 3-5 Days Disposition Disposition: Home, Self Care
[2021-06-23] MEDS: Morphine 4 MG/ML Syringe IV (10:43)
[2021-06-23] MEDS: Ondansetron 4 MG/2 ML Vial IV (10:44)
[2021-06-23 10:46] LABS: Absolute Neutrophil Count 7.1 X10^3/uL (2.0-7.7); Basophil# 0.04 X10^3/uL; Basophil% 0.5 % (0-1); Eosinophil# 0.13 X10^3/uL; Eosinophils% 1.5 % (0-5); Hematocrit 33.2 % (37-47); Hemoglobin 10.5 g/dL (12.0-15.0); Lymphocyte % 5.9 % (19-41); Mean Corp Hgb Conc 31.6 g/dL (32-36); Mean Corpuscular Hgb 26.3 pg (27.0-32.0); Monocyte# 0.64 X10^3/uL; Monocyte% 7.5 % (0-10); NRBC Flagged by Analyzer 0 % (0-5); Neutrophil # 7.14 X10^3/uL (2.7-7.7); Neutrophil % 83.5 % (47-70); POSITIVE DIFFERENTIAL YES; Platelet Count 260 K/mm3 (150-450); RBC Distribution Width CV 13.4 % (11.6-14.6); RBC Distribution Width SD 40.5 fl (35.1-43.9); White Blood Count 8.5 K/mm3 (4.4-11.0)
[2021-06-23 10:49] LABS: Differential Indicated SCAN CRITERIA MET
[2021-06-23 11:03] LABS: Anion Gap 7 (5-15); BUN 8 mg/dL (7-18); BUN/Creat Ratio 11.4 RATIO (10-20); Calcium,Total 9.4 mg/dL (8.5-10.1); Chloride 98 mmol/L (98-107); EST Glomerular Filtration Rate 90 mL/min (>60); Est Glom Filt Rate - Afr Amer 109 mL/min (>60); Estimated Creatinine Clearance 81.03 ml/min; Glucose 113 mg/dL (74-106); Sodium Level 132 mmol/L (136-145); Troponin-I HS < 3 pg/mL (3.0-54.0)
[2021-06-23 11:23] LABS: Differential Comment SCANNED
[2021-06-23 12:34] VITALS: BP 114/79; PULSE 100; RESP 18; TEMP 36.6; O2SAT 93
--- NOTE | 2021-06-28 07:03 | EX.ED.DYSGE1 ---
HPI History of Present Illness Chief Complaint: Fever PFSH PFSH Medical History Bilateral pulmonary embolism COVID-19 Mitral valve prolapse Home Medications ergocalciferol (vitamin D2) 1,250 mcg PO QWEEK 06/08/21 [History Last Taken 06/05/21] sertraline 100 mg PO QHS 06/08/21 [History Last Taken 06/06/21] acetaminophen [Tylenol] 1,000 mg PO Q8H PRN PRN #0 tab 06/21/21 [Rx Last Taken Unknown] apixaban [Eliquis] 5 mg PO BID #60 tab 06/21/21 [Rx Last Taken Unknown] levofloxacin 500 mg PO DAILY #5 tab 06/21/21 [Rx Last Taken Unknown] oxycodone 5 mg PO Q6H PRN 3 Days #12 tab 06/21/21 [Rx Last Taken Unknown] trazodone 100 mg PO QHS #30 tab 06/21/21 [Rx Last Taken Unknown] oxycodone 5 mg PO Q6H PRN 3 Days #10 cap 06/23/21 [Rx Last Taken Unknown] zolpidem [Ambien] 5 mg PO QHS PRN #3 tab 06/23/21 [Rx Last Taken Unknown] Allergy/AdvReac Type Severity Reaction Status Date / Time FLUORIDE TOOTHPASTE Allergy Swelling Uncoded 06/23/21 10:03 Family History Other Diabetes Heart disease Multiple sclerosis Social History Smoking Status: Never smoker [facility] MDM Radiography Diagnostic Testing: Clinical Impression(s) from Imaging Studies Chest X-Ray 06/23/21 10:26 IMPRESSION: Diffuse bilateral infiltrates concerning for multifocal pneumonia Electronically Signed: Kashmir Padgett, at 10:57 EST Tel , Service support , Discharge Plan Triage Chief Complaint: Fever ED Provider: Lashanda Means Dx/Rx/DC Orders Clinical Impression: COVID-19, Chest pain, Fever Instructions: Coronavirus Disease 2019 (COVID-19): Overview, Coronavirus Disease 2019 (COVID-19): Caring for Yourself or Others Prescriptions: New zolpidem [Ambien] 5 mg tablet 5 mg PO QHS PRN (Reason: insomnia) Qty: 3 RF: 0 oxycodone 5 mg capsule 5 mg PO Q6H PRN (Reason: pain) 3 Days Qty: 10 RF: 0 No Action sertraline 100 mg tablet 100 mg PO QHS RF: 0 ergocalciferol (vitamin D2) 1,250 mcg (50,000 unit) capsule 1,250 mcg PO QWEEK RF: 0 trazodone 100 mg Tablet 100 mg PO QHS Qty: 30 RF: 0 acetaminophen [Tylenol] 325 mg Tablet 1,000 mg PO Q8H PRN PRN (Reason: Pain Score 1-10/Temp > 100.7 F) Qty: 0 RF: 0 oxycodone 5 mg Tablet 5 mg PO Q6H PRN (Reason: pain (scale score 4-10)) 3 Days Qty: 12 RF: 0 levofloxacin 500 mg tablet 500 mg PO DAILY Qty: 5 RF: 0 Eliquis 5 mg tablet 5 mg PO BID Qty: 60 RF: 0 Primary Care Provider: Oscar Ayala Referrals: Oscar Ayala MD [Primary Care Provider] - 3-5 Days Disposition Disposition: Home, Self Care Discharge Date/Time: 06/23/21 12:35
== END 2021-06-23 12:35 | disposition home or self-care (01) ==
PROVIDERS: Emergency Provider Emergency Medicine; PCP Student in an Organized Health Care Education/Training Program
DX: U07.1 COVID-19 (principal); R07.9 Chest pain, unspecified; R50.9 Fever, unspecified
CPT/HCPCS: 71045; 80048; 84484; 85025; 87040; 93005; 96374; 96375; 99284; A4216; J2405

== ENCOUNTER 2021-08-02 11:51 | Outpatient (CLI) | payer OTHER, SELFPAY ==
[2021-08-02 12:30] VITALS: PULSE 102; PULSE 104; PULSE 110; PULSE 112; PULSE 116; PULSE 91; PULSE 94; PULSE 99; O2SAT 93; O2SAT 94; O2SAT 96; O2SAT 98
--- NOTE | 2021-08-02 17:01 | WT_ITS ---
PSN 6 Minute Walk Test 6 Minute Walk Test 6 Minute Walk Test: 6 Minute Walk Test PSN:6-Minute Walk Test Start: 08/02/21 12:33 Freq: Status: Active Protocol: [id number] Document 08/02/21 12:30 [employer] [facility] (Rec: 08/02/21 12:37 [employer] [facility] [id number]) 6 Minute Walk Test Date Performed 08/02/21 Time Performed 12:30 Height 5 ft 7 in Weight: 74.843 kg Weight in Pounds 165.[address]: DR ROSALES Assistive device used: None Pre-test Oxygen Delivery Method Room Air Pulse Ox (%) 96 Pulse Rate (60-100 beats/min) 91 Dyspnea Zak Scale (0-10) 0 Exertion Zak Scale (6-20) 6 1st minute Oxygen Delivery Method Room Air Pulse Ox (%) 96 Pulse Rate (60-100 beats/min) 112 H 2nd minute Oxygen Delivery Method Room Air Pulse Ox (%) 94 Pulse Rate (60-100 beats/min) 99 3rd minute Oxygen Delivery Method Room Air Pulse Ox (%) 94 Pulse Rate (60-100 beats/min) 104 H 4th minute Oxygen Delivery Method Room Air Pulse Ox (%) 94 Pulse Rate (60-100 beats/min) 110 H 5th minute Oxygen Delivery Method Room Air Pulse Ox (%) 93 Pulse Rate (60-100 beats/min) 116 H 6th minute Oxygen Delivery Method Room Air Pulse Ox (%) 94 Pulse Rate (60-100 beats/min) 102 H Dyspnea Zak Scale (0-10) 0 Exertion Zak Scale (6-20) 8 Post-test Oxygen Delivery Method Room Air Pulse Ox (%) 98 Pulse Rate (60-100 beats/min) 94 Full Laps Walked 21 Partial Lap, Number of Tiles Walked 14 Total Distance Walked (ft) 1253 Interpretation Interpretation: The patient was able to ambulate 1253 feet over the course of 6 minutes on room air with no assistive devices or breaks. The patient experienced no significant desaturation, but did have a peak heart rate of 116 bpm. These findings are consistent with deconditioning. Recommendations Recommendations: No supplemental oxygen is indicated at this time.
== END 2021-08-02 23:59 | disposition short-term general hospital (02) ==
LOC: PSN 11:54
PROVIDERS: PCP Family Medicine; Referring Provider Internal Medicine Critical Care Medicine; Visit Provider Internal Medicine Critical Care Medicine
DX: U07.1 COVID-19 (principal)
CPT/HCPCS: 94618

== ENCOUNTER 2022-01-04 20:13 | Emergency (ER) | payer OTHER, SELFPAY ==
[2022-01-04 20:15] VITALS: BP 135/119; PULSE 102; RESP 12; TEMP 35.9; O2SAT 92; BMI 27.9
--- NOTE | 2022-01-04 20:33 | RAD_ITS ---
rScriptor Unformatted Report Gender: Female Age: 61 years Exam: XR Wrist Min 3 Views LEFT Comparison: History: trauma FINDINGS: IMPRESSION Dorsal soft tissue swelling. No fracture identified. Electronically Signed: Marci Klein MD at 21:01 EDT , RAD/Wrist min 3 Views IMPRESSION: undefined
--- NOTE | 2022-01-04 20:34 | EX.ED.UPPERE ---
HPI History of Present Illness Chief Complaint: Upper Extremity Injury Narrative Narrative: Patient presents status post fall over 8-1/2 hours ago. She states that she was outside working and it was hot outside. She was near syncopal and started to fall. She fell in the driveway and sustained bruising to her bilateral lower extremities with an abrasion to her left knee. Her main concern is that she has left wrist pain that has been increasing over time. She denies hitting her head or actual loss of consciousness. No neck pain. She is right hand dominant. She has pain with movement of her left wrist and of her left thumb. She tried to put ice on it but cannot tolerate anything touching it. She presents for evaluation of her left wrist injury. [facility] Medical History Bilateral pulmonary embolism COVID-19 Deviated septum Mitral valve prolapse Home Medications ergocalciferol (vitamin D2) 1,250 mcg (50,000 unit) capsule 1,250 mcg PO QWEEK supplement 06/08/21 [History Last Taken 06/05/21] sertraline 100 mg tablet 100 mg PO QHS mood 06/08/21 [History Last Taken 06/06/21] acetaminophen 325 mg tablet (Tylenol) 1,000 mg PO Q8H PRN PRN Pain Score 1-10/Temp > 100.7 F #0 tabs 06/21/21 [Rx Last Taken Unknown] trazodone 100 mg tablet 100 mg PO QHS #30 tabs 06/21/21 [Rx Last Taken Unknown] albuterol sulfate 90 mcg/actuation aerosol inhaler (ProAir HFA) 2 puff inhalation Q6H PRN Cough 08/01/21 [History Last Taken Unknown] Allergy/AdvReac Type Severity Reaction Status Date / Time FLUORIDE TOOTHPASTE Allergy Swelling Uncoded 01/04/22 20:15 Family History Other Diabetes Heart disease Multiple sclerosis Social History Smoking Status: Never smoker ROS ROS ED ROS Narrative Constitutional: No fever, no chills. HEENT: No sore throat. No neck pain. No loss of vision. No rhinorrhea. Cardiovascular: No chest pain. No palpitations. No pedal edema. Respiratory: No cough, no shortness of breath. Abdominal: No abdominal pain. No nausea. No vomiting. Genitourinary: No dysuria. No hematuria. Musculoskeletal: No myalgias. Left wrist pain and swelling, worse with movement. Neurologic: No headaches. No dizziness. No lightheadedness. Skin: No rash. No change in color. Multiple abrasions bilateral lower extremities. Psychiatric: No depression. No anxiety. EXAM Physical Exam Narrative Exam Narrative: Afebrile. Vital signs noted. GCS 15. ABCs intact. HEENT: Normocephalic. Atraumatic. PERRL, EOMI. Neck soft and supple. No point tenderness or step off. Cardiovascular: Regular rate and rhythm. No murmurs, rubs, or gallops appreciated. Respiratory: No tachypnea. Lungs clear to auscultation bilaterally. Gastrointestinal: Abdomen soft, nontender, with normoactive bowel sounds. No rebound or guarding. Neurological: Awake. Alert. Nonfocal, nonlateralizing. Skin: No rash. Normal color. No pallor. Abrasions to left lower extremity, left knee, positive ecchymosis right lower extremity. Musculoskeletal: No pedal edema. Full range of motion extremities except examination of the left wrist which shows diffuse tenderness distal radius. Able to oppose thumb. Mild tenderness anatomical snuffbox and with axial loading of thumb. Able to abduct and adduct fingers. Const Vital Signs: 01/04/22 20:15 Temperature 96.6 F L Temperature Source Temporal Pulse Rate 102 H Respiratory Rate 12 Blood Pressure 135/119 H Blood Pressure Mean 124 Pulse Ox 92 Oxygen Delivery Method Room Air MDM MDM MDM Narrative Medical decision making narrative: Patient was given a [place] tablet. X-rays were obtained of the left wrist and 3 views. They were interpreted by myself. There is no evidence of fracture. However, given her tenderness in the anatomical snuffbox, she was also given instructions that she should follow-up with orthopedics or her primary care physician in 1 to 2 weeks for possible repeat x-rays. She will continue ice and elevation at home. She was placed in a thumb spica splint. Radiology did confirm my initial reading of no evidence of fracture on x-ray. Return instructions were reviewed. Additionally, patient states that she is unsure of her last tetanus immunization so she will be administered an Adacel shot. Disposition is discharged home in stable condition. Discharge Plan Triage Chief Complaint: Upper Extremity Injury ED Provider: Antoine Courtney Dx/Rx/DC Orders Clinical Impression: Fall, Left wrist sprain, Multiple abrasions, Iujxkimaws-kqylyhdea-iliajvw (DPT) vaccination administered at current visit Instructions: ED Abrasion, ED Possible Wrist Fracture, ED Wrist Sprain Prescriptions: No Action albuterol sulfate [ProAir HFA] 90 mcg/actuation HFA aerosol inhaler 2 puff inhalation Q6H PRN (Reason: Cough) sertraline 100 mg tablet 100 mg PO QHS ergocalciferol (vitamin D2) 1,250 mcg (50,000 unit) capsule 1,250 mcg PO QWEEK trazodone 100 mg Tablet 100 mg PO QHS Qty: 30 0RF acetaminophen [Tylenol] 325 mg Tablet 1,000 mg PO Q8H PRN PRN (Reason: Pain Score 1-10/Temp > 100.7 F) Qty: 0 0RF Primary Care Provider: Vince Olivares Referrals: Vince Olivares DO [Primary Care Provider] - 1 Week if not improving Eliezer Moralez MD [STAFF PHYSICIAN] - 1 Week if not improving Disposition Disposition: Home, Self Care
[2022-01-04] MEDS: HYDROcodone Bitartrate/Apap 5/325 Tablet PO (20:41)
[2022-01-04] MEDS: Diphth,Pertuss(Acell),Tet Vac 0.5 ML Vial IM (21:25)
[2022-01-04 21:27] VITALS: BP 132/74; PULSE 78; RESP 15; O2SAT 97
== END 2022-01-04 21:28 | disposition home or self-care (01) ==
PROVIDERS: Emergency Provider Emergency Medicine; PCP Family Medicine; Visit Provider Emergency Medicine
DX: S63.502A Unspecified sprain of left wrist, initial encounter (principal); S80.812A Abrasion, left lower leg, initial encounter; S80.811A Abrasion, right lower leg, initial encounter; S80.212A Abrasion, left knee, initial encounter; Z79.899 Other long term (current) drug therapy; Z23 Encounter for immunization; Z86.16 Personal history of COVID-19; W19.XXXA Unspecified fall, initial encounter
CPT/HCPCS: 73110; 90471; 90715; 99283

== ENCOUNTER 2023-11-25 09:23 | Emergency (ER) | payer OTHER, SELFPAY ==
[2023-11-25 09:23] VITALS: BP 143/84; PULSE 74; RESP 19; TEMP 36.3; O2SAT 98; BMI 25.0
--- NOTE | 2023-11-25 09:32 | EDS_ITS ---
HPI History of Present Illness Chief Complaint: Chest Other Detail of Chief Complaint: Left-sided chest pain status post fall 1 week ago Informant: patient Onset/Context/Timing Onset: Weeks (1 week ago) Mechanism/Context: Blunt Injury (Fall from ladder painting windows) Location of pain/injuries: - (Left rib cage ribs 4 through 6 anterior to posterior line) Quality of Pain: Dull Current Severity: Mild Maximum Severity: Moderate Worsened by: Palpation Relieved by: Remaining still Associated Symptoms Associated Symptoms: Negative for Parasthesias, Weakness, Loss of function, Inability to ambulate, Loss of consciousness or Amnesia Narrative Narrative: Patient is a 62-year-old woman. She fell from a ladder. She sustained multiple bruises to her right and left lower extremity. She presents because of persistent pain left rib cage ribs 4 through 6 anterior to posterior axillary line. She denies shortness of breath. Denies dyspnea on exertion. Movement exacerbates her pain as well as palpation. She denies abdominal pain. She denies pain referred to her shoulder. She denies head trauma. She denies neck pain. Denies paresthesia, anesthesia or motor weakness. Prior similar symptoms: No Recent Illness/Hospitalization: No [facility] Medical History (Updated 11/25/23 @ 10:[address] Javier Ordoñez MD) Basal cell carcinoma Deviated septum Bilateral pulmonary embolism COVID-19 Mitral valve prolapse Home Medications ?Medication ?Instructions ?Recorded ?Last Taken ?Type ergocalciferol (vitamin D2) 1,250 1,250 mcg PO QWEEK supplement 06/08/21 06/05/21 History mcg (50,000 unit) capsule sertraline 100 mg tablet 100 mg PO QHS mood 06/08/21 06/06/21 History acetaminophen 325 mg tablet 1,000 mg (3.0769 x 325 mg) PO Q8H 06/21/21 Unknown Rx (Tylenol) PRN PRN Pain Score 1-10/Temp > 100.7 F #0 tabs trazodone 100 mg tablet 100 mg PO QHS #30 tabs 06/21/21 Unknown Rx albuterol sulfate 90 mcg/actuation 2 puff inhalation Q6H PRN Cough 08/01/21 Unknown History aerosol inhaler (ProAir HFA) Allergy/AdvReac Type Severity Reaction Status Date / Time fluoride Allergy Swelling Verified 01/29/22 15:47 Family History Other Diabetes Heart disease Multiple sclerosis Social History Smoking Status: Never smoker ROS ROS ED Cardiovascular Cardiovascular: Reports chest pain; Denies palpitations, paroxysmal nocturnal dyspnea or racing heartbeat Respiratory/Chest Respiratory/Chest: Denies cough, dyspnea, dyspnea on exertion or paroxysmal nocturnal dyspnea Gastrointestinal Gastrointestinal: Denies abdominal pain, nausea or vomiting Genitourinary Genitourinary ED: Denies hematuria Musculoskeletal Musculoskeletal: Denies back pain or neck pain Integumentary Reports other Details: Patient not noted any bruising. ; Denies Abrasions or rash Hematologic/Lymphatic Hematologic/Lymphatic: Denies easy bleeding or easy bruising EXAM Physical Exam Const Vital Signs: 11/25/23 09:23 Temperature 97.4 F L Temperature Source Temporal Pulse Rate 74 Respiratory Rate 19 H Blood Pressure 143/84 H Blood Pressure Mean 103 Pulse Ox 98 Oxygen Delivery Method Room Air Positive well nourished and well developed General Appearance ED: well developed and NAD HEENT HEENT Narrative: Atraumatic normocephalic. Patient has skin graft to the chin. Appears to be bruising. She states this is not bruising. Ears normal. Nares patent. No dental trauma. Eyes PERRL and EOMs intact bilaterally General Eye ED: Yes other Other Details: No subconjunctival hemorrhage. Neck full ROM Chest Wall inspection of chest normal and palpation of chest normal Chest Narrative: Pain to palpation ribs 4 through 6 on the left anterior to posterior axillary line. There is no crepitus subcutaneous air. Breath sounds are noted bilaterally and symmetric. There are no rales, rhonchi or wheezing noted. Resp normal respiratory effort and clear to auscultation bilaterally Cardio regular rhythm, S1 normal heart sound, S2 normal heart sound and no murmurs Rate: regular rate GI normal to inspection, nondistended, normoactive bowel sounds, non-tender, non- distended and no masses GI Narrative: Specifically there is no tenderness in the right and left costal margin and no evidence of a paraspinal megaly. Furthermore there is no bruising. Extremity Extremity Narrative: Multiple bruises right and left lower extremity due to fall from ladder. Neuro oriented x3, CN's II-XII intact bilaterally and moves all extremities [place] Coma Scale: document GCS findings Spontaneous Obeys Commands Oriented 15 Sensorium / Orientation: alert Psych mental status grossly normal and thought process normal Skin Skin Narrative: Multiple bruises right and left lower extremity. MDM MDM MDM Narrative Medical decision making narrative: With patient having fall from ladder persistent pain for 1 week will obtain rib detail left to assess for fracture, pneumothorax, hemothorax, pulmonary contusion. Vital signs were noted. Blood pressure slightly elevated. History & Record Review Additional record(s) reviewed:: Prior ED visit (Last seen January 04, 2022 for Upper extremity injury) Radiography Chest X-Ray - ED: Read by ED Physician (Total of 5 views with left rib detail and chest reveals no fractured ribs, pneumothorax, hemothorax or pulmonary contusion. Cardiac silhouette size normal. Hilum appears normal. This is apparently reviewed interpreted by me at [id number].) Diagnostic Testing: Clinical Impression(s) from Imaging Studies Ribs w/Chest X-Ray 11/25/23 09:45 IMPRESSION: RIBS: Fracture of the lateral aspect of the left third rib. CHEST: Mild acromioclavicular arthrosis bilaterally. Electronically Signed: Brandon Edge MD at 10:09 EDT , Discharge Plan Triage Chief Complaint: Chest Other ED Provider: Javier Ordoñez Dx/Rx/DC Orders Clinical Impression: Contusion of chest wall with intact skin, Fall from ladder, Contusion of multiple sites of left lower extremity, Contusion of multiple sites of right lower extremity Instructions: ED Bruise, Rib Prescriptions: No Action albuterol sulfate [ProAir HFA] 90 mcg/actuation HFA aerosol inhaler 2 puff inhalation Q6H PRN (Reason: Cough) sertraline 100 mg tablet 100 mg PO QHS ergocalciferol (vitamin D2) 1,250 mcg (50,000 unit) capsule 1,250 mcg PO QWEEK trazodone 100 mg Tablet 100 mg PO QHS Qty: 30 0RF acetaminophen [Tylenol] 325 mg Tablet 1,000 mg PO Q8H PRN PRN (Reason: Pain Score 1-10/Temp > 100.7 F) Qty: 0 0RF Primary Care Provider: Vince Olivares Referrals: Vince Olivares, [Primary Care Provider] - 10-14 Days if not better Activity Restrictions/Additional Instructions: 1. Apply ice 4-6 times a day 2. Take either 4 ibuprofen tablets every 8 hours or 2 Aleve tablets every 12 hours for the next 5 to 7 days. Print Language: Hong Konger Disposition Disposition: Home, Self Care
--- NOTE | 2023-11-25 09:45 | RAD_ITS ---
STUDY: X-RAY - UNILATERAL RIBS ( LEFT ) WITH CHEST REASON FOR EXAM: Female, 62 years old. Fall from ladder pain anterior axillary line to po -- Posterior axillary line 4 through 6. TECHNIQUE - RIBS: 4 views of the left ribs. TECHNIQUE - CHEST: Single PA view of the chest. COMPARISON: None. FINDINGS - RIBS: There is a fracture of the lateral aspect of the left third rib. Normal remainder of the visualized ribs. FINDINGS - CHEST: The lungs are clear and expanded. There is no demonstrated pleural abnormality. Normal size heart. Normal mediastinum and margarita. Normal visualized pulmonary arteries. Normal visualized aortic arch and descending thoracic aorta. Normal visualized thoracic spine. There is mild acromioclavicular arthrosis bilaterally. Normal visualized clavicles and shoulders. There is no demonstrated abnormality of the visualized soft tissue structures of the upper abdomen. RAD/Ribs Uni Min 3V w/PA Chest IMPRESSION: RIBS: Fracture of the lateral aspect of the left third rib. CHEST: Mild acromioclavicular arthrosis bilaterally. Electronically Signed: Brandon Edge MD at 10:09 EDT ,
[2023-11-25 11:08] VITALS: BP 138/76; PULSE 74; RESP 16; TEMP 36.8; O2SAT 97
== END 2023-11-25 11:10 | disposition home or self-care (01) ==
LOC: ED 10:10
PROVIDERS: Emergency Provider Emergency Medicine; PCP Family Medicine; Visit Provider Emergency Medicine
DX: S20.20XA Contusion of thorax, unspecified, initial encounter (principal); W11.XXXA Fall on and from ladder, initial encounter; S20.212A Contusion of left front wall of thorax, initial encounter; Y93.E9 Activity, other interior property and clothing maintenance; S80.11XA Contusion of right lower leg, initial encounter; S80.12XA Contusion of left lower leg, initial encounter; Y92.9 Unspecified place or not applicable
CPT/HCPCS: 71101; 99282

== ENCOUNTER 2024-04-28 05:25 | Day surgery (SDC) | payer MEDICARE, OTHER, SELFPAY ==
[2024-04-28] VITALS (8 sets, daily range): BP systolic 105–132; BP diastolic 69–84; PULSE 86–105; RESP 16–17; TEMP 36.5–37.1; O2SAT 96–98; BMI 25.2
--- NOTE | 2024-04-28 05:28 | EKG12_ITS ---
Test Reason : PRE-OP Blood Pressure : / mmHG Vent. Rate : 093 BPM Atrial Rate : 093 BPM P-R Int : 152 ms QRS Dur : 084 ms QT Int : 360 ms P-R-T Axes : 053 030 010 degrees QTc Int : 447 ms Normal sinus rhythm T wave abnormality, consider inferior ischemia Abnormal ECG When compared with ECG of 23-JUN-2021 10:36, No significant change was found Confirmed by Bhupinder Modi ([id number]), desk editor VINAY KINSEY ([id number]) on 04/28/2024 2:01:15 PM Referred By: Vince Olivares Confirmed By:Bhupinder Modi
--- NOTE | 2024-04-28 06:30 | PRE.ANES_ITS ---
ASA Classification* ASA Classification ASA Classification: 2 Assessment & Plan Anesthesia* Anesthesia Assessment Anesthesia Assessment: Discussed sedation and/or anesthesia options, risks, benefits, and alternatives with patient/parents/legal guardian/POA. Questions invited. The patient/parents/legal guardian/POA seems to understand and agrees to proceed with anesthesia plan. Reviewed the physical assessment, medical history, allergy history and patient home medications list prior to surgery/procedure/anesthetic and documented any changes. Performed airway and anesthesia risk assessments. Anesthesia Type Anesthesia Type: MAC History Source History Obtained from:: Patient and Chart Anesthesia Focused Assessment* Temperature: 98.0 F Pulse Rate: 86 Blood Pressure: 132/84 Respiratory Rate: 16 Pulse Ox: 98 Airway Assessment Mouth opens: >3 cm Mallampati Score: II Teeth Condition: Intact Neck Range of motion (ROM): Full ROM Focused Labs Anesthesia Preop lab: CBC WBC 8.5 K/mm3 (4.4-11.0) 06/23/21 10:35 RBC 4.00 M/mm3 (4.2-5.4) L 06/23/21 10:35 Hgb 10.5 g/dL (12.0-15.0) L 06/23/21 10:35 Hct 33.2 % (37-47) L 06/23/21 10:35 Plt Count 260 K/mm3 (150-450) 06/23/21 10:35 CHEMISTRY Potassium 4.0 mmol/L (3.5-5.1) 06/23/21 10:35 Sodium 132 mmol/L (136-145) L 06/23/21 10:35 Magnesium 2.0 mg/dL (1.6-2.6) 06/07/21 21:49 BUN 8 mg/dL (7-18) 06/23/21 10:35 Creatinine 0.70 mg/dL (0.55-1.02) 06/23/21 10:35 Glucose 113 mg/dL (74-106) H 06/23/21 10:35 COAG PT 13.3 SECONDS (11.7-14.9) 06/20/21 08:45 Pre-Assessment Diagnosis/Proposed Procedure Planned Operative Procedure(s): CSCOPE OA Anesthesia History 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 When Was Last Pacemaker Check QUESTION #4 FULL TEXT: You/Your Family Experience fever (hyperthermia) with Anesthesia Last Oral Intake Last Oral intake: Last Oral Intake NPO since 02:30 04/28/24 05:45 Meds taken in AM with sips of No 04/28/24 05:45 water? 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 Female Yes 04/27/24 09:14 HX of Motion Sickness Yes 04/27/24 09:14 HX of N/V After Surgery Yes 04/27/24 09:14 Non-Smoker Yes 04/27/24 09:14 Duration of Surgery greater No 04/27/24 09:14 than 60 minutes Number of Risk Factors 4 04/27/24 09:14 PONV Score Severe Risk 04/27/24 09:14 Height & Weight Height & Weight: Anesthesia: Height & Weight Height 5 ft 7 in 04/28/24 05:45 Weight: 73 kg 04/28/24 05:45 Body Mass Index (BMI) 25.2 04/28/24 05:45 Respiratory Assessment Respiratory Assessment - farm equipment technician: Respiratory Tract Infection Hx - farm equipment technician Hx Respiratory Tract Infection No 04/27/24 09:14 STOP Sleep Apnea STOP Sleep Apnea - farm equipment technician: STOP Sleep Apnea - farm equipment technician Hx Hypertension No 04/27/24 09:14 Hx Sleep Apnea No 04/27/24 09:14 CPAP BIPAP Do you snore loudly (louder No 04/27/24 09:14 than talking or can be heard Do you often feel tired/ No 04/27/24 09:14 fatigued/ sleepy during daytime? Has anyone observed you stop No 04/27/24 09:14 breathing during sleep? STOP Results Negative 04/27/24 09:14 QUESTION #5 FULL TEXT : Do you snore loudly (louder than talking or can be heard through closed doors)? 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 Specify any problems Hx of Preganancy in last 3 No 04/27/24 09:14 Months Nurse Filling Out Transfusion DSCHRIBER 04/27/24 09:14 & Questions: Date: 04/27/24 04/27/24 09:14 Time: 09:16 04/27/24 09:14 Patient unable to answer at this time (ie. confused, unrespo /Reproduction History /Reproductive History - farm equipment technician: /Reproductive Hx- farm equipment technician Hx Now No 04/27/24 09:14 Gestational Age (in weeks): EDC: Hx Hx Para Hx Section SAB No 04/27/24 09:14 PFSH Medical History Wears glasses Post-menopausal Depression Migraine headache Non-smoker History of echocardiogram Congenital absence of right kidney Basal cell carcinoma Bilateral pulmonary embolism COVID-19 Mitral valve prolapse Home Medications ?Medication ?Instructions ?Recorded ?Last Taken ?Type ergocalciferol (vitamin D2) 1,250 1,250 mcg PO QWEEK supplement 06/08/21 06/05/21 History mcg (50,000 unit) capsule sertraline 100 mg tablet 100 mg PO QHS mood 06/08/21 06/06/21 History trazodone 100 mg tablet 100 mg PO QHS #30 tabs 06/21/21 Unknown Rx bweompg-ulmbjjqzsvhpv-pyggrvpe 250 1 tab PO Q4-6H PRN pain 03/23/24 Unknown History mg-250 mg-65 mg tablet (Excedrin Extra Strength) melatonin 10 mg capsule 10 mg PO HS PRN sleep 03/23/24 Unknown History Allergy/AdvReac Type Severity Reaction Status Date / Time atorvastatin Allergy Body aches Verified 04/28/24 05:44 fluoride Allergy Swelling Verified 04/28/24 05:44 sulfamethoxazole (From Allergy PT UNSURE Verified 04/28/24 05:44 Sulfamethoxazole-Trimethoprim) OF REACTION trimethoprim (From Allergy PT UNSURE Verified 04/28/24 05:44 Sulfamethoxazole-Trimethoprim) OF REACTION hydroxyzine AdvReac depression Verified 04/28/24 05:44 Family History Other Diabetes Heart disease Multiple sclerosis Surgical History Hx of colonoscopy History of facial surgery Social History household members: spouse current occupational status: retired Smoking Status: Never smoker substance use type: does not use Review of Systems (Anesthesia) ROS Narrative System reviewed and no additional complaints, except as documented.
--- NOTE | 2024-04-28 06:46 | HP.PCM_ITS ---
HPI - General General Date of Admission: 04/28/24 Date of Service: 04/28/24 Chief Complaint: Screening colonoscopy HPI Narrative [place]OU[place], is a 63 F who presents today for screening colonoscopy. She is not have any abdominal pain. Does not have any chest pain or shortness of breath. Overall she is in very good health. She does have a history of breast surgery and bilateral pulmonary embolism. She is on aspirin at this time. [facility]LY [facility] Medical History Wears glasses Post-menopausal Depression Migraine headache Non-smoker History of echocardiogram Congenital absence of right kidney Basal cell carcinoma Bilateral pulmonary embolism COVID-19 Mitral valve prolapse Home Medications ?Medication ?Instructions ?Recorded ?Last Taken ?Type ergocalciferol (vitamin D2) 1,250 1,250 mcg PO QWEEK supplement 06/08/21 06/05/21 History mcg (50,000 unit) capsule sertraline 100 mg tablet 100 mg PO QHS mood 06/08/21 06/06/21 History trazodone 100 mg tablet 100 mg PO QHS #30 tabs 06/21/21 Unknown Rx zvyjoua-ibovqxdcthsfd-toyvsjog 250 1 tab PO Q4-6H PRN pain 03/23/24 Unknown His tory mg-250 mg-65 mg tablet (Excedrin Extra Strength) melatonin 10 mg capsule 10 mg PO HS PRN sleep 03/23/24 Unknown History Allergy/AdvReac Type Severity Reaction Status Date / Time atorvastatin Allergy Body aches Verified 04/28/24 05:44 fluoride Allergy Swelling Verified 04/28/24 05:44 sulfamethoxazole (From Allergy PT UNSURE Verified 04/28/24 05:44 Sulfamethoxazole-Trimethoprim) OF REACTION trimethoprim (From Allergy PT UNSURE Verified 04/28/24 05:44 Sulfamethoxazole-Trimethoprim) OF REACTION hydroxyzine AdvReac depression Verified 04/28/24 05:44 Family History Other Diabetes Heart disease Multiple sclerosis Surgical History Hx of colonoscopy History of facial surgery Social History household members: spouse current occupational status: retired Smoking Status: Never smoker substance use type: does not use ROS Review of Systems ROS Unobtainable: other Constitutional Constitutional: Denies fatigue, fever(s), poor appetite, weight gain or weight loss ENT HEENT: Denies mouth lesions Cardiovascular Cardiovascular: Denies abdominal bloating, abdominal edema or abdominal pain Respiratory/Chest Respiratory/Chest: Denies change in mental status, change in phlegm color, chest congestion or chest tightness Gastrointestinal Gastrointestinal: Denies belching, bloating, change in bowel habits, change in stool character, chewing difficulty, coffee ground emesis, constipation, cramping, diarrhea, dyspepsia, dysphagia, early satiety, excessive flatus, fecal incontinence, heartburn, hematemesis, hematochezia, hemorrhoids, loose stools, melena, nausea, odynophagia, rectal bleeding, tenesmus, vomiting or weight changes Genitourinary Genitourinary: Denies abdominal discomfort, burning urination or itching Musculoskeletal Musculoskeletal: Reports as per HPI; Denies muscle weakness or myalgias Integumentary Integumentary: Denies jaundice Neurologic Neurologic: Denies lack of coordination or weakness Psychiatric Psychiatric: Denies confusion, depression, memory loss, mood swings, paranoia or suicidal ideation Endocrine Endocrinology: Denies systems reviewed and no addt'l complaints, except as documented Hematologic/Lymphatic Hematologic/Lymphatic: Denies anemia, easy bleeding, easy bruising or lymphadenopathy Allergic/Immunologic Allergic/Immunologic: Denies systems reviewed and no addt'l complaints, except as documented Vital Signs Vital Signs Vital Signs: 04/28/24 05:45 04/28/24 05:45 04/28/24 06:31 Temperature 98.0 F 98.0 F Temperature Source Temporal Pulse Rate 86 86 Respiratory Rate 16 16 Respiratory Pattern Normal Blood Pressure 132/84 H 132/84 H Blood Pressure Mean 100 Blood Pressure Source Monitor Blood Pressure Position Semi-Fowlers Blood Pressure Location Left Arm Pulse Ox 98 98 Oxygen Delivery Method Room Air Weight Weight: 160 lb 14.999 oz Body Mass Index (BMI) 25.2 Physical Exam Const alert General Appearance: cooperative Orientation / Consciousness: oriented to person HEENT hearing grossly normal bilaterally Head and Scalp: normal to inspection Face and Sinus: face symmetric Nose: external nose normal Mouth: oral and palatal mucosa normal Eyes conjunctivae normal General Eye: normal appearance of both eyes Neck full ROM General: normal visual inspection Lymph Lymphatic: no lymphadenopathy noted Chest inspection of chest normal and palpation of chest normal Chest: symmetrical chest wall rise Resp normal respiratory effort Effort and Inspection: able to speak in complete sentences Cardio regular rate GI non-distended Percussion: normal to percussion Rectal Exam: deferred Neuro Speech: speech normal Gait (Neuro): normal gait Assessment & Plan Assessment/Plan (1) Encounter for screening for malignant neoplasm of colon: PLAN: She was explained alternatives including not withstanding bleeding, infection, sepsis, perforation, need for emergent urgent . She will have an ASA of 3.
--- NOTE | 2024-04-28 07:27 | PCM.POST.ANE ---
Anesthesia: Postop Eval I Current Vital Signs Temperature: 97.7 F Pulse Rate: 97 Blood Pressure: 105/77 Respiratory Rate: 17 Pulse Ox: 96 Oxygen Delivery Method: Room Air Assessment Airway patent: Yes Spontaneous unlabored respirations: Yes Mental status: Asleep nausea: No Vomiting: No Anesthesia Complication: No Fluid Hydration Crystalloid volume administer (ml): 30 Total IV fluid infused: 30 Progress Note Anesthesia document: Postop Eval 1 completed: Yes
--- NOTE | 2024-04-28 08:34 | PCM.POSTANE2 ---
Anesthesia Postop Eval I Sum Postop Eval Completion status Anesthesia document: Postop Eval 1 completed: Yes Anesthesia Postop Eval I Summary Anesthesia Postop Eval I Summary: Anesthesia Postop Eval I: Assessment Summary Airway patent Yes 04/28/24 07:28 [email or web address] Spontaneous unlabored Yes 04/28/24 07:28 [email or web address] respirations Mental status Asleep 04/28/24 07:28 [email or web address] nausea No 04/28/24 07:28 [email or web address] Vomiting No 04/28/24 07:28 [email or web address] Anesthesia Postop Eval I: Fluid Summary Crystalloid volume administer 30 04/28/24 07:28 [email or web address] (ml) Colloids volume administered ( ml) Blood Product volume administered (ml) Total IV fluid infused 30 04/28/24 07:28 [email or web address] Anesthesia Postop Eval I: Summary Notes Anesthesia Complication No 04/28/24 07:28 [email or web address] Anesthesia Complication Comment: Post-operative progress note Anesthesia: Postop Eval II Evaluation Mental status: Awake Pain Level: 0 nausea: No Vomiting: No
== END 2024-04-28 07:53 | disposition home or self-care (01) ==
LOC: EN 05:26 → AC 05:28
PROVIDERS: PCP Family Medicine; Referring Provider Family Medicine; Visit Provider Internal Medicine Gastroenterology
PROC: 0DJD8ZZ Inspection of Lower Intestinal Tract, Via Natural or Artificial Opening Endoscopic (ICD-10-PCS; CPT 45378; principal; 2024-04-28 06:25)
DX: Z12.11 Encounter for screening for malignant neoplasm of colon (principal); K57.30 Diverticulosis of large intestine without perforation or abscess without bleeding; F32.A Depression, unspecified; Q60.0 Renal agenesis, unilateral; Z88.2 Allergy status to sulfonamides; Z79.82 Long term (current) use of aspirin; Z86.711 Personal history of pulmonary embolism; Z85.828 Personal history of other malignant neoplasm of skin; Z79.899 Other long term (current) drug therapy
CPT/HCPCS: G0121; 93005; A4216; J2405